=== PATIENT | female | born 1955 | race Caucasian/White ===

== ENCOUNTER 2019-07-30 10:11 | Outpatient (CLI) | payer BC, SELFPAY ==
[2019-07-30 10:27] LABS: Basophils # 0.1 10^3/uL (0.0-0.1); Basophils % 0.4 %; Eosinophils # 0.4 10^3/uL (0.0-0.8); Eosinophils % 3.6 %; Hematocrit 47.7 % (37.0-47.0); Hemoglobin 15.7 g/dL (11.5-15.3); Lymphocytes % 8.3 %; Mean Corpuscular HGB Conc 32.9 g/dL (30.0-36.0); Mean Corpuscular Hemoglobin 30.2 pg (28.0-34.0); Mean Corpuscular Volume 91.7 fL (81-99); Mean Platelet Volume 9.4 fL (7.4-10.4); Monocytes % 8.3 %; Neutrophils # 9.8 10^3/uL (1.8-7.7); Neutrophils % 78.9 %; Nucleated Red Blood Cells % 0 %; Platelet Count 182 10^3/cmm (130-400); White Blood Count 12.4 10^3/uL (4.0-10.0)
[2019-07-30 10:46] LABS: Alanine Aminotransferase 67 U/L (0-33); Albumin Level 5.2 g/dL (3.5-5.2); Alkaline Phosphatase 93 IU/L (35-105); Anion Gap 19.3 (5-19); Aspartate Amino Transferase 35 U/L (0-32); Blood Urea Nitrogen 10 mg/dL (8-23); Calcium 10.2 mg/dL (8.5-10.5); Carbon Dioxide 28 mmol/L (22-29); Chloride 101 mmol/L (98-107); Globulin 2.9 g/dL (1.3-4.6); Glucose 133 mg/dL (65-115); Osmolality Calculated 296 mOsm/kg (285-295); Potassium 4.3 mmol/L (3.5-5.1); Sodium 144 mmol/L (136-145); Total Bilirubin 0.6 mg/dL (0.15-1.2); Total Protein 8.1 g/dL (6.6-8.7)
== END 2019-07-30 10:12 | disposition home or self-care (01) ==
LOC: LAB 10:14
PROVIDERS: PCP Physician Assistant; Visit Provider Internal Medicine Critical Care Medicine
DX: J44.9 Chronic obstructive pulmonary disease, unspecified (principal)
CPT/HCPCS: 36415; 80053; 85025

== ENCOUNTER 2019-08-07 11:17 | Outpatient (CLI) | payer MEDICARE, SELFPAY ==
--- NOTE | 2019-08-07 11:22 | CT_ITS ---
WS: [id number] LDCT LUNG CANCER SCREENING TECHNIQUE: Noncontrast CT of the chest with coronal and sagittal reformatted images. CLINICAL INFORMATION: HX OF TOBACCO USE COMPARISON: None. DLP: 58.53 mGy.cm DIvol: 1.[address] scans at [facility] use at least one of these dose optimization techniques: automat ed exposure control; mA and/or kV adjustment per patient size (includes targeted exams where dose is matched to clinical indication); or iterative reconstruction. FINDINGS: Noncalcified pulmonary nodule right lower lobe measuring 5 mm. Tiny noncalcified nodule left upper lo be laterally measuring 2 mm. Calcified granulomas in the right middle lobe and along the fissure. Calcified granuloma left upper l obe. Mild chronic emphysematous changes. No mediastinal or hilar lymphadenopathy. No axillary lymphad enopathy. Calcified hilar nodes. Moderate aortic calcification. Coronary calcification. Partially byron luated suggestion of Small nodules left greater than right adrenal glands likely adenomas. This can b e followed up with CT abdomen pelvis adrenal protocol. Splenic granulomas. Small esophageal hiatal hernia. Mild thoracic kyphosis. Schmorl's nodes in the mi d thoracic spine with chronic anterior wedging. CT/CT lung screening [id number] IMPRESSION: LUNG-RADS: 3-Probably Benign FOLLOW UP: 6 Month LDCT
== END 2019-08-07 11:18 | disposition home or self-care (01) ==
LOC: CT 11:19
PROVIDERS: PCP Physician Assistant; Visit Provider Family Medicine
DX: Z12.2 Encounter for screening for malignant neoplasm of respiratory organs (principal); Z87.891 Personal history of nicotine dependence; L92.8 Other granulomatous disorders of the skin and subcutaneous tissue; K44.9 Diaphragmatic hernia without obstruction or gangrene; M40.294 Other kyphosis, thoracic region; M51.44 Schmorl's nodes, thoracic region
CPT/HCPCS: G0297

== ENCOUNTER 2019-08-31 08:51 | Outpatient (CLI) | payer MEDICARE, SELFPAY ==
[2019-08-31 09:46] VITALS: O2SAT 93
--- NOTE | 2019-08-31 10:15 | USCV_ITS ---
Melinda Spear Age: 64 Gender: F : 1955 Exam Date: 08/31/2019 09:45 Ordering Phys: Jackson Cordova MD Technologist: Edu Jeronimo Exam Location: [facility] Indication: SOB BP: 160 / 80 HR: 90 Rhythm: Sinus Technical Quality: Fair MEASUREMENTS (Male / Female) Normal Values 2D ECHO LV Diastolic Diameter PLAX 3.4 cm 4.2 - 5.9 / 3.9 - 5.3 cm LV Systolic Diameter PLAX 1.8 cm IVS Diastolic Thickness 0.8 cm 0.6 - 1.0 / 0.6 - 0.9 cm IVS Systolic Thickness 1.3 cm LVPW Diastolic Thickness 1.0 cm 0.6 - 1.0 / 0.6 - 0.9 cm LVPW Systolic Thickness 0.9 cm LVOT Diameter 2.0 cm LV Ejection Fraction 2D Teich 78.0 % LV Ejection Fraction MOD 2C 75.3 % LV Ejection Fraction 2C AL 75.5 % LA Diameter 3.4 cm LA Width 2.9 cm LA Height 3.0 cm RA Width 2.8 cm RA Height 3.4 cm M-MODE LV Diastolic Diameter MM 5.4 cm 4.2 - 5.9 / 3.9 - 5.3 cm LV Systolic Diameter MM 3.0 cm LV Ejection Fraction MM Teich 76.0 % IVS Diastolic Thickness MM 1.1 cm 0.6 - 1.0 / 0.6 - 0.9 cm IVS Systolic Thickness MM 1.8 cm LVPW Diastolic Thickness MM 1.1 cm 0.6 - 1.0 / 0.6 - 0.9 cm LVPW Systolic Thickness MM 1.9 cm RV Diastolic Diameter MM 1.1 cm Aortic Annulus Diameter 3.3 cm LA Ao Ratio MM 1.0 MV E Point Septal Separation 0.6 cm DOPPLER AV Peak Velocity 130.0 cm/s LVOT Peak Velocity 99.0 cm/s AV Area Cont Eq vti 2.7 cm squared AV Area Cont Eq pk 2.4 cm squared MV Area PHT 5.0 cm squared Mitral E to A Ratio 1.1 MV E' Velocity 8.0 cm/s Mitral E to MV E' Ratio 8.4 Mitral E to LV E' Lateral Ratio 8.9 Mitral E to LV E' Septal Ratio 8.0 TR Peak Velocity 170.0 cm/s TR Peak Gradient 11.5 mmHg TV Peak E Velocity 85.0 cm/s Right Atrial Pressure 3.0 mmHg Pulmonary Artery Systolic Pressu 14.6 mmHg PV Peak Velocity 129.0 cm/s FINDINGS Left Ventricle Normal left ventricular cavity size. Normal left ventricular systolic function. No regional wall motion abnormalities. Left ventricular ejection fraction is estimated at 65 %. Grade I/IV diastolic dysfunction (abnormal relaxation filling pattern), normal to mildly elevated filling pressures. Right Ventricle The right ventricle is normal in size and function. Right Atrium The right atrium is normal in size. Left Atrium The left atrium is normal in size. Mitral Valve Structurally normal mitral valve without significant stenosis or prolapse. There is no mitral regurgitation. Aortic Valve Structurally normal aortic valve without significant sclerosis or stenosis. There is no aortic regurgitation. Tricuspid Valve Structurally normal tricuspid valve without significant stenosis or regurgitation. Pulmonary artery systolic pressure is normal. Pulmonic Valve Structurally normal pulmonic valve without significant stenosis. There is no pulmonic regurgitation. Pericardium Normal pericardium without effusion. Aorta Normal ascending aorta dimension. CONCLUSIONS 1-Normal left ventricular cavity size. Normal left ventricular systolic function. No regional wall motion abnormalities. Left ventricular ejection fraction is estimated at 65 %. Grade I/IV diastolic dysfunction (abnormal relaxation filling pattern), normal to mildly elevated filling pressures. 2-There is no pericardial effusion. 3-No significant valve abnormalities. 4-Pulmonary artery systolic pressure is within normal limits. 5-Right atrial pressure is around 5 mm of mercury. 6-There are no prior echocardiogram studies to compare. Robbin Watts MD (Electronically Signed) Final Date: 31 August 2019 17:11 S
--- NOTE | 2019-08-31 14:30 | PFTS_ITS ---
Date of Study:08/31/19 Date of Dictation: MECHANICS: Forced vital capacity (FVC) is normal. Forced expiratory volume in one second (FEV1) is reduced. FEV1/FVC is reduced. FLOW VOLUME LOOP: Reduced flow at all lung volumes with significant scooping. LUNG VOLUMES: Total lung capacity (TLC) is elevated. Residual volume (RV) is elevated. DIFFUSING CAPACITY FOR CARBON MONOXIDE: Severely reduced. INTERPRETATION: The pulmonary function tests are consistent with severe airflow obstruction. There is no significant bronchodilator response. Lung volumes are consistent with hyperinflation and air trapping. Gas exchange (DLCO) is severely diminished. MTDD
== END 2019-08-31 08:52 | disposition home or self-care (01) ==
LOC: RT 08:55
PROVIDERS: PCP Physician Assistant; Visit Provider Internal Medicine Critical Care Medicine
DX: R06.02 Shortness of breath (principal); J44.9 Chronic obstructive pulmonary disease, unspecified; I51.81 Takotsubo syndrome
CPT/HCPCS: 93306; 94060; 94726; 94729; J7611

== ENCOUNTER 2019-08-31 20:00 | Outpatient (CLI) | payer MEDICARE, SELFPAY | END 2019-08-31 20:01 | disposition home or self-care (01) | LOC: SLEEP 09-01 10:23 | PROVIDERS: PCP Physician Assistant; Visit Provider Internal Medicine Critical Care Medicine | DX: J44.9 Chronic obstructive pulmonary disease, unspecified (principal); R06.02 Shortness of breath; I51.81 Takotsubo syndrome | CPT/HCPCS: 93306; 94060; 94726; 94729; 94762; J7611 ==

== ENCOUNTER → 2019-10-02 10:26 | Outpatient (BNVA) | payer BC, SELFPAY | PROVIDERS: PCP Physician Assistant; Visit Provider Internal Medicine | DX: J44.9 Chronic obstructive pulmonary disease, unspecified (principal); Z20.828 Contact with and (suspected) exposure to other viral communicable diseases | CPT/HCPCS: 87635 ==

== ENCOUNTER 2019-12-23 09:26 | Outpatient (CLI) | payer BC, SELFPAY ==
--- NOTE | 2019-12-23 | XR_ITS ---
WS: [id number] Bone mineral density performed on a [place], today Clinical data: POST MENOPAUSE Findings: The first 4 lumbar vertebral bodies demonstrated the bone mineral density of 0.982 g/sq cm for a karen g adult T score of -1.8. Measurement of the left hip reveals a bone mineral density of 0.760 g/cm2 with a young adult T score of -2.0. Measurement of the right hip reveals the bone mineral density of 0.788 g/cm2 for young adult T score of -1.7. XR/XR DEXA axial skeleton* [id number] Impression: 1. Osteopenia of the lumbar spine. 2. Osteopenia of both hips.
== END 2019-12-23 09:27 | disposition home or self-care (01) ==
LOC: RADWPI 09:34
PROVIDERS: PCP Physician Assistant; Visit Provider Physician Assistant
DX: Z78.0 Asymptomatic menopausal state (principal); M85.88 Other specified disorders of bone density and structure, other site
CPT/HCPCS: 77080

== ENCOUNTER 2020-03-18 10:11 | Outpatient (CLI) | payer MEDICARE, SELFPAY ==
--- NOTE | 2020-03-18 10:14 | MM_ITS ---
WS: [id number] BILATERAL SCREENING DIGITAL MAMMOGRAM WITH CAD HISTORY: SCREENING COMPARISON: 06/22/2008 Bilateral CC and MLO views submitted. Computer aided detection analyzed. Breast composition: The breasts are heterogeneously dense, which may obscure small masses. No suspici ous masses, microcalcifications or architectural distortion. Benign scattered calcifications in each breast. MM/[place] [id number] IMPRESSION: BI-RADS: 2-Benign FOLLOW UP: 1 Year Follow-up
== END 2020-03-18 10:12 | disposition home or self-care (01) ==
LOC: RADSHAW 10:13
PROVIDERS: PCP Physician Assistant; Visit Provider Physician Assistant
DX: Z12.31 Encounter for screening mammogram for malignant neoplasm of breast (principal)
CPT/HCPCS: 77067

== ENCOUNTER 2020-05-09 07:44 | Outpatient (CLI) | payer MEDICARE, SELFPAY ==
--- NOTE | 2020-05-09 07:48 | CT_ITS ---
WS: [id number] LDCT LUNG CANCER SCREENING HISTORY: HX OF TOBACCO USE TECHNIQUE: Axial imaging performed from the apices to 1 cm below the costophrenic angles. Coronal and sagittal reformats are submitted with axial MIP series. All CT scans at [facility] use at least one of these dose optimization techniques: automated exposure control; mA and/or kV adjustment per patient size (includes targeted exams where dose is matched to clinical indication); or iterativ e reconstruction. DLP: 58.94 mGy.cm DIvol: 1.58 mGy COMPARISON: 08/07/2019 Diagnostic quality: Satisfactory Lung Nodules: Stable 5 mm nodule RIGHT lower lobe, image 196 of series 3. 2 mm nodule periphery LEFT upper lobe, image 60 of series 3. There is an additional stable nodule in the RIGHT lower lobe which could be a scar or granuloma on image 220 of series 3. No new nodules. Lungs: Moderate pulmonary hyperexpansion. Changes of mild early bronchiectasis at the lung bases. Gra nulomas scattered throughout the lungs. Heart: Normal size heart. No pericardial effusion. Other findings: Scattered coronary artery calcifications. Mild atherosclerosis aorta. Small hiatal he rnia. Suspicious but indeterminate for a cyst in the upper pole of the RIGHT kidney. Increase in thor acic kyphosis with multiple wedge-shaped compression fractures. CT/CT lung screening [id number] IMPRESSION: LUNG-RADS: 2S-Benign Appearance or Behavior with Significant Findings FOLLOW UP: 12 Month: Continue annual screening with LDCT OTHER FINDINGS (S MODIFIER): Possible cyst or nodule upper pole RIGHT kidney. L obulated contour of the upper pole. Recommend follow-up ultrasound evaluation o f the kidneys to evaluate for possible mass or cyst.
== END 2020-05-09 07:45 | disposition home or self-care (01) ==
LOC: CT 07:44
PROVIDERS: PCP Physician Assistant; Visit Provider Internal Medicine Critical Care Medicine
DX: Z12.2 Encounter for screening for malignant neoplasm of respiratory organs (principal); Z87.891 Personal history of nicotine dependence; I70.0 Atherosclerosis of aorta; I25.10 Atherosclerotic heart disease of native coronary artery without angina pectoris; K44.9 Diaphragmatic hernia without obstruction or gangrene; M40.294 Other kyphosis, thoracic region
CPT/HCPCS: 71271

== ENCOUNTER → 2021-07-03 08:34 | Outpatient (BNVA) | payer MEDICARE, MEDICAID, SELFPAY | PROVIDERS: PCP Physician Assistant; Visit Provider Internal Medicine Critical Care Medicine | DX: J44.9 Chronic obstructive pulmonary disease, unspecified (principal); J96.11 Chronic respiratory failure with hypoxia; R91.1 Solitary pulmonary nodule; I10 Essential (primary) hypertension; E78.5 Hyperlipidemia, unspecified; Z87.891 Personal history of nicotine dependence | CPT/HCPCS: 99214 ==

== ENCOUNTER 2021-07-20 07:05 | Outpatient (CLI) | payer MEDICARE, MEDICAID, SELFPAY ==
--- NOTE | 2021-07-20 12:21 | PFTS_ITS ---
Date of Study:07/20/21 Date of Dictation: 07/21/2021 MECHANICS: Postbronchodilator forced vital capacity (FVC) is normal. Postbronchodilator forced expiratory volume in one second (FEV1) is severely reduced 37 %. FEV1/FVC is reduced. There is no significant response to bronchodilators. FLOW VOLUME LOOP: Severe sloping of expiratory limb suggestive of severe airflow obstruction . LUNG VOLUMES: Total lung capacity (TLC) is increased. Residual volume (RV) is increased suggestive of severe air trapping. DIFFUSING CAPACITY FOR CARBON MONOXIDE: Severely reduced . INTERPRETATION: The spirometry consistent with severe airflow obstruction. No significant response to bronchodilators. Flow volume loop consistent with severe airflow obstruction. Lung volumes suggestive of severe air trapping and hyperinflation. There is severe gas transfer defect. Constellation of findings consistent with severe obstructive lung disease like emphysema. Clinical correlation recommended. MTDD
== END 2021-07-20 07:06 | disposition home or self-care (01) ==
LOC: RT 07:05
PROVIDERS: PCP Physician Assistant; Visit Provider Internal Medicine Critical Care Medicine
DX: J44.9 Chronic obstructive pulmonary disease, unspecified (principal); F17.210 Nicotine dependence, cigarettes, uncomplicated
CPT/HCPCS: 94060; 94618; 94726; 94729; J7611

== ENCOUNTER 2021-08-25 11:02 | Outpatient (CLI) | payer MEDICARE, MEDICAID, SELFPAY ==
--- NOTE | 2021-08-25 11:10 | MM_ITS ---
WS: [id number] Bilateral screening 3D tomosynthesis digital mammogram, 08/25/2021 Clinical Data: SCREENING Comparison: 03/18/2020, 06/22/2008, 10/21/2003. Findings: The breast parenchymal pattern shows fat replacement. No spiculated masses or clustered calcification s are seen. There are no secondary signs of carcinoma. There are mole markers on both breasts. There are small benign calcifications in both breasts. MM/[place] [id number] Impression: 1. Negative bilateral mammogram unchanged. 2. Recommend annual screening mammograms. BIRADS: 1-Negative FOLLOW UP: 1 Year Follow-up The CAD checkering machine operator was used.
== END 2021-08-25 11:03 | disposition home or self-care (01) ==
LOC: RAD 11:02
PROVIDERS: PCP Physician Assistant; Visit Provider Physician Assistant
DX: Z12.31 Encounter for screening mammogram for malignant neoplasm of breast (principal)
CPT/HCPCS: 77063; 77067

== ENCOUNTER 2021-09-05 10:00 | Outpatient (CLI) | payer MEDICARE, MEDICAID, SELFPAY ==
--- NOTE | 2021-09-05 10:15 | US_ITS ---
WS: [id number] RENAL ULTRASOUND HISTORY: Possible cyst or nodule upper pole RIGHT kidney COMPARISON: 05/09/2020 TECHNIQUE: 2-D and color Doppler imaging of the kidney submitted. Right kidney: 11.0 cm x 3.4 cm x 5.3 cm. Normal size kidney. Well-circumscribed cyst from the upper pole of the RIGHT kidney corresponds to th e abnormality seen on the recent lung screening CT. This cyst measures 2.3 x 2.3 x 2.4 cm. There are few other scattered cysts. No solid mass or obstruction. Left kidney: 12.2 cm x 4.9 cm x 4.3 cm. Normal echogenicity with no hydronephrosis or mass. Aorta: Normal. Urinary Bladder: Normal distention. US/US renal BI* [id number] IMPRESSION: 1. Multiple RIGHT renal cysts. Mass identified involving the superior RIGHT ki dney on a prior lung screen CT corresponds to a simple cyst. 2. No solid renal mass.
== END 2021-09-05 10:01 | disposition home or self-care (01) ==
PROVIDERS: PCP Physician Assistant; Visit Provider Internal Medicine Critical Care Medicine
DX: R93.429 Abnormal radiologic findings on diagnostic imaging of unspecified kidney (principal); Q61.02 Congenital multiple renal cysts
CPT/HCPCS: 76770

== ENCOUNTER 2021-09-18 12:04 | Outpatient (CLI) | payer MEDICARE, MEDICAID, SELFPAY ==
--- NOTE | 2021-09-18 | CT_ITS ---
Guided Bronchoscopy Planning CT images; total exam DLP: 609.97 mGy-cm MTDD
== END 2021-09-18 12:05 | disposition home or self-care (01) ==
LOC: RAD 12:05
PROVIDERS: PCP Physician Assistant; Visit Provider Internal Medicine Critical Care Medicine
DX: J44.9 Chronic obstructive pulmonary disease, unspecified (principal); R91.1 Solitary pulmonary nodule
CPT/HCPCS: 71250

== ENCOUNTER 2021-11-08 08:19 | Outpatient (CLI) | payer MEDICARE, MEDICAID, SELFPAY | END 2021-11-08 08:20 | disposition home or self-care (01) | LOC: RAD 11:05 | PROVIDERS: PCP Physician Assistant; Visit Provider Internal Medicine Critical Care Medicine | DX: J44.9 Chronic obstructive pulmonary disease, unspecified (principal); J96.11 Chronic respiratory failure with hypoxia; R91.1 Solitary pulmonary nodule; Z99.81 Dependence on supplemental oxygen | CPT/HCPCS: 99214 ==

== ENCOUNTER 2021-11-14 08:50 | Inpatient (IN) | payer MEDICARE, MEDICAID, SELFPAY ==
[2021-11-10 12:27] VITALS: BMI 23.1
[2021-11-14] VITALS (47 sets, daily range): BP systolic 129–175; BP diastolic 72–86; PULSE 66–102; RESP 14–30; TEMP 36.2–36.9; O2SAT 90–98
[2021-11-14] MEDS: sodium chloride 0.9% 1,000 ML 30 ML IV (06:44)
--- NOTE | 2021-11-14 06:47 | ANES.PREANE2 ---
Pre-Anesthetic Assessment Height/Weight: Height 1.65 m Weight 63.049 kg Temp Pulse Resp BP Pulse Ox O2 Del Method 97.1 F L 102 H 18 175/86 98 11/14/21 06:28 11/14/21 06:28 11/14/21 06:28 11/14/21 06:28 11/14/21 06:28 11/14/21 06:28 Preop Diagnosis: Severe COPD Operation Date: 11/14/21 07:00 Proposed Procedures p Endobronchial Valve Placement [id number],J43.9(Not Applicable) - Biplab MD Art Familial anesthetic complications: none Last intake: Intake Last Liquid Date 11/13/21 Last Liquid Time 23:00 Last Solid Date 11/13/21 Last Solid Time 19:00 Social Alcohol (2 beer per day.) and No tobacco Airway Submandibular: within normal limits Cervical ROM: within normal limits Mallampati: Class II Dentition: false Pulmonary Chronic Obstructive Pulmonary Disease and Shortness of Breath 3L O2 at night and prn during day. CV/HEM Hypertension 09/06 Echo with normal EF no major abnormalities None reported Hepatic None reported GI None reported Metabolic Hyperlipidemia and Thyroid Disease [facility] [place] None reported Neuropsych None reported Anesthetic Plan ASA status: 3 Anesthesia: General Medications/Allergies Home Medications Medication Instructions Recorded Confirmed Last Taken Type albuterol sulfate 2.5 mg/3 mL 2.5 mg inhalation Q4H PRN 07/30/19 11/10/21 11/12/21 History (0.083 %) solution for nebulization Shortness Of Breath cholecalciferol (vitamin D3) 25 25 mcg PO DAILY 07/30/19 11/14/21 11/13/21 History mcg (1,000 unit) capsule fexofenadine 180 mg tablet 180 mg PO DAILY 07/30/19 11/14/21 11/13/21 History (Allergy Relief (fexofenadine)) ipratropium 0.5 mg-albuterol 3 mg 3 ml inhalation Q6H PRN Shortness 07/30/19 11/10/21 11/12/21 History (2.5 mg base)/3 mL nebulization Of Breath soln losartan 50 mg tablet (Cozaar) 50 mg PO DAILY 07/30/19 11/10/21 11/13/21 History mecobalamin (vitamin B12) 1,000 1,000 mcg PO DAILY 07/30/19 11/10/21 11/13/21 History mcg chewable tablet pravastatin 10 mg tablet 10 mg PO DAILY 07/30/19 11/10/21 11/13/21 History amlodipine 5 mg tablet (Norvasc) 5 mg PO DAILY 09/10/19 11/14/21 11/13/21 History chlorthalidone 25 mg tablet 25 mg PO DAILY 08/29/20 11/14/21 11/13/21 History mometasone 100 mcg/actuation HFA See Rx Instructions .Route 05/31/21 11/10/21 11/13/21 Rx aerosol inhaler (Asmanex HFA) .COMPLEX #26 grams fluticasone propionate 50 2 spray intranasal DAILY 07/03/21 11/14/21 11/13/21 History mcg/actuation nasal spray,suspension (Flonase Allergy Relief) tiotropium 2.5 mcg-olodaterol 2.5 2 puff inhalation DAILY 90 days 08/08/21 11/10/21 11/13/21 Rx mcg/actuation mist for inhalation #12 grams (Stiolto Respimat) levofloxacin 750 mg tablet 750 mg PO DAILY #5 tabs 11/10/21 11/14/21 11/13/21 Rx prednisone 20 mg tablet 40 mg PO DAILY #10 tabs 11/10/21 11/14/21 11/13/21 Rx albuterol sulfate 90 mcg/actuation 2 puff inhalation Q4H PRN 11/14/21 11/14/21 11/14/21 History aerosol inhaler Shortness Of Breath Allergies Allergy/AdvReac Type Severity Reaction Status Date / Time doxycycline AdvReac Intermediate ADR-Vomitin Verified 11/10/21 12:32 g Current Medications Generic Name Dose Route Start Last Admin Trade Name Freq PRN Reason Stop Dose Admin Sodium Chloride 1,000 mls @ 30 mls/hr 11/14/21 06:15 11/14/21 06:44 Sodium Chloride 0.9% IV 11/15/21 06:14 30 mls/hr .Q24H LARY Administration PFSH Anesthesia Medical History B12 deficiency COPD (chronic obstructive pulmonary disease) HTN (hypertension) Hyperlipidemia Surgical History H/O tubal ligation Family History Father Cancer Social History Smoking and tobacco status: former smoker Quit status (tobacco): has quit using tobacco Year quit tobacco: 2006 - 2PPD x 30 Years Alcohol intake: current Alcohol intake frequency: holidays/special occasions only Alcohol type: beer Lives independently: Yes Household members: spouse Marital status: Current occupational status: retired History of recent travel: No Current gender identity: Female Data Anesthesia Cardiac Studies: Echocardiogram Ultrasound 08/31/19
--- NOTE | 2021-11-14 06:50 | W.PM.OPSUD ---
Surgery/Procedure H&P Update DATE OF PROCEDURE: November 14, 2021 DATE H&P PERFORMED: 11/08/21 PREOP DIAGNOSIS: Severe COPD PRIMARY INDICATION FOR PROCEDURE: Severe COPD This is a 66-year-old lady with severe airflow obstruction, hyperinflation and air trapping and severely reduced DLCO coming in for bronchoscopic lung volume reduction procedure of the left upper lobe. PLANNED PROCEDURE: Operation Date: 11/14/21 07:00 Proposed Procedures p Endobronchial Valve Placement [id number](Not Applicable) - Jackson Cordova MD
[2021-11-14] MEDS: lidocaine 1% INJ 20 mL MDV (mL) XX (07:25)
--- NOTE | 2021-11-14 08:34 | PM.OP ---
Operative Report Date of procedure: November 14, 2021 Pre-op diagnosis: Preop Diagnosis Severe COPD Post-op diagnosis: Same Brief History: This is a 66-year-old lady with severe COPD coming in for bronchoscopic lung volume reduction of left upper lobe. Procedure: Name of the procedure: Bronchoscopy inspection of the airway, endobronchial spiration valve placement in the left upper lobe for bronchoscopic lung volume reduction. Indication: Severe emphysema, severe airflow obstruction with air trapping, chronic hypoxic respiratory failure Anesthesia: General Description of the procedure: The patient was positioned optimally. He underwent endotracheal tube placement and general anesthesia. The bronchoscope was passed through the endotracheal tube till lower trachea was visible. The lower trachea, rakesh, right and left mainstem bronchi anesthetized with 1% lidocaine. In a systematic way, bilateral airways were then examined. The bronchoscope was introduced into the left mainstem bronchus. The left upper lobe, lingula and lower lobe bronchi were normal. There was evidence of mild bronchiectasis, and minimal mucosal erythema. The bronchoscope was introduced to the right mainstem bronchus. The right upper lobe, middle lobe and lower lobe bronchi were examined. No abnormalities were identified. There was mucus throughout the airways. Bronchoalveolar lavage was performed from the medial segment of the right middle lobe. A total of 30 cc of fluid was instilled, fluid return was 15 mm. The fluid was cloudy. Using the patented balloon, measurements were performed for the left upper lobe segmental and subsegmental bronchi. The apicoposterior segmental bronchus divided into 2 subsegmental branches. There were measured separately. The anterior segmental had 2 separate bronchus. They are also measured separately for valve sizing. The lingular bronchus had a longer length and was measured for 1 valve placement. A total of 5 valves were sequentially placed. A 9 mm valve was deployed in the upper subsegmental branch of apicoposterior segment. The lower subsegment needed a 7 mm valve. 2 7 mm valves are deployed in the anterior segments. An 9 mm valve was deployed in the lingular segment. All valves were in good position. Complications: There is no immediate complications. The patient was brought to ICU after the procedure. Chest x-ray: Pending.
--- NOTE | 2021-11-14 08:41 | XR_ITS ---
WS: [id number] Exam: XR chest 1V portable [id number] Date/Time of Exam: 11/14/2021 8:54 AM Reason For Exam: Post endobronchial valve placement Comparison 07/01/2018. The lungs are clear and fully expanded. Cardiomediastinal silhouette is unremarkable. No pleural effu teri. Postoperative changes seen at the left pulmonary hilum. Bony structures are intact. Monitoring leads superimpose the chest. XR/XR chest 1V portable [id number] IMPRESSION: 1. No acute cardiopulmonary finding.
--- NOTE | 2021-11-14 08:53 | PM.HP ---
Providers/Chief Complaint Admitting Physician: Jackson Cordova MD Primary Care Provider: Jennifer Nevarez Chief Complaint: COPDFU History of Present Illness Melinda Spear is a 66 year old female who was admitted to the intensive care unit after undergoing bronchoscopic lung volume reduction by aspiration valve placement in the left upper lobe. The patient has gold class D COPD. Her latest pulmonary function test in July 2021 revealed an FEV1 FVC ratio of 35% with FEV1 1.86 L which is 37% of predicted and a forced vital capacity of 2.45 L which is 83% of predicted.? Her total lung capacity is 131%, residual volume of 196% and DLCO of 33%. Her CT scan for evaluation of bronchoscopic lung volume reduction showed her to be candidate for left upper lobe valve deployment.? There is fascial integrity on the left side.? She has 61% emphysema in the left upper lobe with a heterogeneity score of 18.? The volume of the left upper lobe is more than 1500 cc. The patient had a 5 mm right lower lobe lung nodule that had been stable for more than 2 years. Her nocturnal oximetry was consistent with nocturnal hypoventilation with desaturation. The patient has currently been using 2 to 3 L of oxygen. On her latest 6-minute walk test the patient walked 500 feet.? Her baseline PCO2 level is around 50. Her other medical history includes hypertension, hyperlipidemia, allergic rhinosinusitis. Her echocardiogram revealed normal ejection fraction with grade 1 diastolic dysfunction.? No valvular abnormalities. The patient underwent 5 endobronchial valve placement to achieve occlusion of the left upper lobe and lingular airways. Postprocedure, the patient had been doing well in the ICU. No complications so far. The patient is on Asmanex and Stiolto at home. In the hospital she is going to be receiving DuoNeb and Pulmicort. She was started on prednisone and Levaquin yesterday and she will receive Solu-Medrol and Levaquin in the ICU. Review of Systems Narrative: General: No fevers chills night sweats or fatigue Skin: No rash HEENT: No nasal congestion, rhinitis, sinusitis, sneezing Neck: There is no neck swelling, mass or swollen glands. Respiratory: She has cough, sputum production, wheezing and exertional shortness of breath Cardiovascular: No chest pain, shortness of breath, orthopnea, or paroxysmal nocturnal dyspnea Gastrointestinal: No abdominal pain, nausea, vomiting Musculoskeletal: No joint pain or swelling, muscle weakness Neurological: Patient is awake alert and oriented x3, no paralysis, gross motor function is normal. Psychiatric: No anxiety or depression. Medications/Allergies Home Medications Medication Instructions Recorded Confirmed Last Taken Type albuterol sulfate 2.5 mg/3 mL 2.5 mg inhalation Q4H PRN 07/30/19 11/10/21 11/12/21 History (0.083 %) solution for nebulization Shortness Of Breath cholecalciferol (vitamin D3) 25 25 mcg PO DAILY 07/30/19 11/14/21 11/13/21 History mcg (1,000 unit) capsule fexofenadine 180 mg tablet 180 mg PO DAILY 07/30/19 11/14/21 11/13/21 History (Allergy Relief (fexofenadine)) ipratropium 0.5 mg-albuterol 3 mg 3 ml inhalation Q6H PRN Shortness 07/30/19 11/10/21 11/12/21 History (2.5 mg base)/3 mL nebulization Of Breath soln losartan 50 mg tablet (Cozaar) 50 mg PO DAILY 07/30/19 11/10/21 11/13/21 History mecobalamin (vitamin B12) 1,000 1,000 mcg PO DAILY 07/30/19 11/10/21 11/13/21 History mcg chewable tablet pravastatin 10 mg tablet 10 mg PO DAILY 07/30/19 11/10/21 11/13/21 History amlodipine 5 mg tablet (Norvasc) 5 mg PO DAILY 09/10/19 11/14/21 11/13/21 History chlorthalidone 25 mg tablet 25 mg PO DAILY 08/29/20 11/14/21 11/13/21 History mometasone 100 mcg/actuation HFA See Rx Instructions .Route 05/31/21 11/10/21 11/13/21 Rx aerosol inhaler (Asmanex HFA) .COMPLEX #26 grams fluticasone propionate 50 2 spray intranasal DAILY 07/03/21 11/14/21 11/13/21 History mcg/actuation nasal spray,suspension (Flonase Allergy Relief) tiotropium 2.5 mcg-olodaterol 2.5 2 puff inhalation DAILY 90 days 08/08/21 11/10/2122 Rx mcg/actuation mist for inhalation #12 grams (Stiolto Respimat) levofloxacin 750 mg tablet 750 mg PO DAILY #5 tabs 11/10/21 11/14/21 11/13/21 Rx prednisone 20 mg tablet 40 mg PO DAILY #10 tabs 11/10/21 11/14/21 11/13/21 Rx albuterol sulfate 90 mcg/actuation 2 puff inhalation Q4H PRN 11/14/21 11/14/21 11/14/21 History aerosol inhaler Shortness Of Breath Allergies Allergy/AdvReac Type Severity Reaction Status Date / Time doxycycline AdvReac Intermediate ADR-Vomitin Verified 11/10/21 12:32 g PFSH Acute PFSH: Medical History (Updated 11/14/21 @ 09:06 by Jackson Cordova MD) B12 deficiency COPD (chronic obstructive pulmonary disease) HTN (hypertension) Hyperlipidemia Surgical History H/O tubal ligation Family History Father Cancer Social History Smoking and tobacco status: former smoker Quit status (tobacco): has quit using tobacco Year quit tobacco: 2006 - 2PPD x 30 Years Alcohol intake: current Alcohol intake frequency: holidays/special occasions only Alcohol type: beer Lives independently: Yes Household members: spouse Marital status: Current occupational status: retired History of recent travel: No Current gender identity: Female Vitals/I&O/Wt Last Vital Signs Temp 97.1 F L 11/14/21 06:28 Pulse 102 H 11/14/21 06:28 Resp 18 11/14/21 06:28 BP 175/86 11/14/21 06:28 Pulse Ox 98 11/14/21 06:28 O2 Del Method 11/14/21 06:28 11/13/21 11/14/21 11/14/21 22:59 06:59 14:59 Intake Total 700 / 700 Balance 700 / 700 Physical Exam Narrative: General: Patient is awake alert and oriented, in no acute distress. Resting comfortably in ICU Neck: No JVD Respiratory: Auscultation: Reduced breath sound bilaterally, no crackles wheezing or rhonchi Cardiovascular: Regular rate and rhythm, S1-S2 present, distant heart sound, no murmur, no peripheral edema Abdomen: Soft, nontender, nondistended, positive bowel sound Musculoskeletal: No obvious joint deformity Skin: No rash Lymphatic: The axillary and inguinal lymph node groups are not examined Neuro: Mental status is normal, no gross cranial nerve deficit, gross normal motor function A&P Assessment and plan (1) COPD (chronic obstructive pulmonary disease): This is a 66-year-old lady with gold class D COPD. Her pulmonary function test is consistent with severe airflow obstruction with hyperinflation, air trapping and severely reduced DLCO. The patient was found to be a candidate for bronchoscopic lung volume reduction and underwent left upper lobe endobronchial valve placement on . A total of 5 valves were placed. She had 2 9 mm valve placed. One was in the lingular segment of the other 1 was on the superior subsegment of apicoposterior segmental bronchus. The other 3 valves were 7 mm. The procedure was completed without any complications. The valves are in good position. As there is approximately 20% risk of developing pneumothorax, the patient will be closely monitored and managed in the medical ICU. Unwilling to obtain a chest x-ray now. The patient was initiated empirically on prednisone and Levaquin yesterday. We will continue with Solu-Medrol and Levaquin for the time being. The patient will receive DuoNeb every 6 hours and Pulmicort every 12 hours. (2) Chronic respiratory failure with hypoxia: The patient has chronic hypoxic respiratory failure. She typically uses 2 to 3 L of oxygen. We will titrate her oxygen with a goal of 88% and above oxygen saturation. (3) Hypertension: The patient was started on amlodipine and losartan those are her home medications. (4) Hyperlipidemia: She was on 10 mg of pravastatin, this was switched to 20 mg of atorvastatin in the hospital. Attestations Medical Necessity Statement*: The patient is expected to be in the hospital for 3 days for close management due to the risk of developing life-threatening pneumothorax. Coding Level of Care Code Acute Educational Administrator for [facility] Fwd Diagnoses COPD (chronic obstructive pulmonary disease) J44.9 Chronic respiratory failure with hypoxia J96.11 Hypertension I10 Hyperlipidemia E78.5
[2021-11-14] MEDS: ipratropium-albuterol 3 mL Neb INHALATION ×3 (09:03→19:50)
[2021-11-14] MEDS: budesonide 0.5 mg/2 mL Neb INHALATION ×2 (09:04→19:50)
[2021-11-14 09:50] LABS: Basophils # 0.1 10^3/uL (0.0-0.1); Basophils % 0.4 %; Eosinophils # 0.1 10^3/uL (0.0-0.8); Eosinophils % 0.5 %; Hematocrit 42.9 % (37.0-47.0); Hemoglobin 14.1 g/dL (11.5-15.3); Lymphocytes % 6.9 %; Mean Corpuscular HGB Conc 32.9 g/dL (30.0-36.0); Mean Corpuscular Hemoglobin 29.9 pg (28.0-34.0); Mean Corpuscular Volume 90.9 fl (81-99); Mean Platelet Volume 9.2 fL (7.4-10.4); Monocytes # 0.7 10^3/uL (0.2-0.9); Monocytes % 4.7 %; Neutrophils # 11.97 10^3/uL (1.8-7.7); Neutrophils % 86.7 %; Nucleated Red Blood Cells % 0 %; Platelet Count 269 10^3/cmm (130-400); Red Blood Count 4.72 10^6/uL (4.1-5.3); Red Cell Distribution Width 13.1 % (12.1-15.1); White Blood Count 13.8 10^3/uL (4.0-10.0)
[2021-11-14 10:07] LABS: Anion Gap 15.6 (5-19); Blood Urea Nitrogen 16 mg/dL (8-23); Carbon Dioxide 27 mmol/L (22-29); Chloride 97 mmol/L (98-107); Glomerular Filtration Rate 62.5 mL/min (90-130); Glucose 186 mg/dL (65-115); Osmolality Calculated 288 mOsm/kg (285-295); Potassium 3.6 mmol/L (3.5-5.1); Sodium 136 mmol/L (136-145)
[2021-11-14] MEDS: levoFLOXacin 750 mg Tablet PO (10:58)
[2021-11-14] MEDS: famotidine 20 mg Tablet PO ×2 (10:59→17:52)
[2021-11-14] MEDS: losartan 50 mg Tablet PO (10:59)
[2021-11-14] MEDS: amlodipine 5 mg Tablet PO (10:59)
[2021-11-14] MEDS: enoxaparin 40 mg/0.4 mL Syringe SUBCUT (11:00)
--- NOTE | 2021-11-14 14:46 | ANE.PACU2 ---
Inpatient post-anesthesia follow up: Airway intact: Yes Vital signs: Temperature 97.1 F Pulse Rate 83 Respiratory Rate 30 Blood Pressure 145/83 Pulse Oximetry 96 Oxygen Delivery Me thod Nasal Cannula Oxygen Flow Rate 3 Fraction of Inspir ed Oxygen Hydration adequate: Yes Nausea and vomiting: No Pain level: 1 Mental status: Baseline
--- NOTE | 2021-11-14 15:04 | PC.NURSE ---
Admitted to ICU from GI ab at 0820 on 4L nasal canula. Patient is awake and appropriate and has no complaints at this time. All belongings in closet in room.
[2021-11-14] MEDS: atorvastatin 40 mg Tablet 20 MG PO (20:16)
[2021-11-15] VITALS (36 sets, daily range): BP systolic 110–166; BP diastolic 60–90; PULSE 68–142; RESP 13–28; TEMP 36.3–36.7; O2SAT 91–96
[2021-11-15] MEDS: ipratropium-albuterol 3 mL Neb INHALATION ×4 (01:59→20:27)
[2021-11-15] MEDS: levoFLOXacin 750 mg Tablet PO (05:08)
--- NOTE | 2021-11-15 07:00 | XR_ITS ---
WS: [id number] Exam: XR chest 1V portable [id number] Date/Time of Exam: 11/15/2021 4:11 AM Reason For Exam: Status post bronchoscopy Comparison 11/14/2021. The lungs are fully expanded and clear. Normal cardiomediastinal silhouette. No pleural effusions. Johnie ny structures are intact. Again noted is a previous instrumentation at the left hilar region. XR/XR chest 1V portable [id number] IMPRESSION: 1. No acute cardiopulmonary finding. No change.
[2021-11-15] MEDS: amlodipine 5 mg Tablet PO (08:23)
[2021-11-15] MEDS: famotidine 20 mg Tablet PO ×2 (08:23→18:14)
[2021-11-15] MEDS: enoxaparin 40 mg/0.4 mL Syringe SUBCUT (08:24)
[2021-11-15] MEDS: losartan 50 mg Tablet PO (08:24)
[2021-11-15] MEDS: budesonide 0.5 mg/2 mL Neb INHALATION ×2 (08:45→20:27)
--- NOTE | 2021-11-15 14:27 | PC.CHAP ---
Pastoral Care Encounter/Spiritual Assessment Type of Contact [] Declined meter tester primary visit [] Patient/Family/Request visit [] Outpatient visit [] Follow-up visit [] Physician referral [] Code/Alert [] Routine visit [] Staff referral [] Actively dying [] Patient sleeping [] Family support [] [] Out of room [] Palliative care [] [] Receiving care in room [] Pre-surgical visit [] Trauma [] Long length of stay [x] ICU visit [] Other: Relational/Emotional Strength [] Patient feels connected with others/family/visitors/staff [] Distress [] Loneliness/isolation [] Abandonment Spirituality of Patient [] Person of Suzie [] Attends Jain of their Suzie [] Believes in Prayer [] Reads Bible or Rastafarian materials [] There are Spiritual issues to be addressed Yeast Washer Interventions [x] Prayer [] Active listening [] Non-anxious presence [] Spiritual/emotional support [] Crisis/trauma care [] Spiritual counseling [] Bereavement support [] Provided bereavement packet [] Provided Bible/devotional materials [] Provided toy/stuffed animal, coloring book to patient or family member [] Provided Communion [] Anointing/[place] [] Salvation [x]xCompleted spiritual assessment [] Other: Impact on Illness or Injury [] Angry [] Fearful [] Anxious [] Often cries [] Exhaustion [] Unable to work [] Unable to attend sikhism [] Unable to walk/stand [] Unable to read [] Unable to drive [] Unable to eat/drink [] Unable to sleep [] Unable to be with family [] Patient intubated [] Other: Summary Time spent with patient
--- NOTE | 2021-11-15 15:58 | CTR_ITS ---
PROCEDURE INFORMATION: Exam: CT Chest Without Contrast; Diagnostic Exam date and time: 11/15/2021 4:52 PM Age: 66 years old Clinical indication: Abnormal findings; Other: Status post bronchoscopic lung volume reduction; Additional info: Status post bronchoscopic lung volume reduction. , Assessment of efficacy of the endobronchial valves. TECHNIQUE: Imaging protocol: Diagnostic computed tomography of the chest without contrast. Radiation optimization: All CT scans at this facility use at least one of these dose optimization techniques: automated exposure control; mA and/or kV adjustment per patient size (includes targeted exams where dose is matched to clinical indication); or iterative reconstruction. COMPARISON: CT chest SELECT [id number] 09/18/2021 12:39 PM RADIATION DOSE METRICS: Total DLP (mGy-cm): 292.53 FINDINGS: Tubes, catheters and devices: There are new devices in multiple left upper lobe bronchi. Please see the note of recent procedure. Lungs: There are changes of centrilobular emphysema throughout both lungs. There is some mild atelectatic change along the major fissure left upper lobe. There is some mild subsegmental atelectasis in the medial aspect of the left upper lobe increased from 09/18/2021. Pleural spaces: Unremarkable. No pneumothorax. No pleural effusion. Heart: There is moderate atherosclerotic calcification of the coronary arteries. Mediastinal space: There is no evidence of mediastinal fluid, masses, or gas. Lymph nodes: There are calcified hilar and mediastinal lymph nodes in keeping with old granulomatous disease. Vasculature: There is no thoracic aortic aneurysm. There is some mild atherosclerotic calcification of the aortic arch and proximal descending thoracic aorta. Bones/joints: Unremarkable. No acute fracture. Soft tissues: Unremarkable. CT/CT chest con [id number] IMPRESSION: 1. Pulmonary emphysema 2. Old granulomatous disease 3. New instrumentation in multiple left upper lobe bronchi 4. No pneumothorax.
--- NOTE | 2021-11-15 15:58 | PM.PN ---
Subjective Subjective: Patient did well. No overnight events. Hemodynamically stable. Oxygen requirement has remained the same. Chest x-ray this morning revealed mild atelectasis in the left upper lobe. Progressive atelectasis which is expected after endobronchial valve deployment has not happened yet. No pneumothorax. No microorganism on gram stain of the right middle lobe BAL. Medications: Reviewed: Yes Vitals/I&O/Wt Last Vital Signs Temp 97.9 F 11/15/21 07:30 Pulse 96 11/15/21 14:55 Resp 16 11/15/21 14:52 BP 134/85 11/15/21 12:00 Pulse Ox 93 11/15/21 14:52 O2 Del Method 11/15/21 14:52 O2 Flow Rate 2 11/15/21 14:52 11/15/21 11/15/21 11/15/21 06:59 14:59 22:59 Intake Total 1979 480 / 480 Output Total 300 / 300 Balance 1979 180 / 180 Weight last 48 hrs Weight 134 lb 6.4 oz Physical Exam Narrative: General: Patient is awake alert and oriented, in no acute distress Neck: No JVD Respiratory: Auscultation: Reduced breath sound bilaterally, monophonic wheezing in the left upper lung zone anteriorly Cardiovascular: Regular rate and rhythm, S1-S2 present, distant heart sound, no murmur, no peripheral edema Abdomen: Soft, nontender, nondistended, positive bowel sound Musculoskeletal: No obvious joint deformity Skin: No rash Lymphatic: The axillary and inguinal lymph node groups are not examined Neuro: Mental status is normal, no gross cranial nerve deficit, gross normal motor function Data : 11/14/21 09:41 11/14/21 09:41 Micro: Microbiology 11/14/21 08:04 Gram Stain - Final Lung Right Middle Lobe Bronchial Washings Culture - Preliminary A&P Assessment and plan (1) COPD (chronic obstructive pulmonary disease): This is a 66-year-old lady with gold class D COPD. Her pulmonary function test is consistent with severe airflow obstruction with hyperinflation, air trapping and severely reduced DLCO. The patient was found to be a candidate for bronchoscopic lung volume reduction and underwent left upper lobe endobronchial valve placement on . A total of 5 valves were placed. She had 2 9 mm valve placed. One was in the lingular segment of the other 1 was on the superior subsegment of apicoposterior segmental bronchus. The other 3 valves were 7 mm. The procedure was completed without any complications. The valves are in good position. As there is approximately 20% risk of developing pneumothorax, the patient will be closely monitored and managed in the medical ICU. Chest x-ray obtained this morning did not reveal any significant atelectasis of the left upper lobe which is concerning regarding the efficacy of the endobronchial valves and optimal positioning. Unwilling to obtain a CT scan of the chest and see if the patient needs repeat bronchoscopic inspection and evaluation. The patient was initiated empirically on prednisone and Levaquin on 11/13. She will be on Solu-Medrol 40 mg daily and Levaquin. The patient will receive DuoNeb every 6 hours and Pulmicort every 12 hours. (2) Chronic respiratory failure with hypoxia: The patient has chronic hypoxic respiratory failure. She typically uses 2 to 3 L of oxygen. We will titrate her oxygen with a goal of 88% and above oxygen saturation. She is currently using 2 L of oxygen. (3) Hypertension: The patient was started on amlodipine and losartan those are her home medications. (4) Hyperlipidemia: She was on 10 mg of pravastatin, this was switched to 20 mg of atorvastatin in the hospital. Attestations Medical Necessity Statement*: The patient is expected to be in the hospital for 3 days for close management due to the risk of developing life-threatening pneumothorax. Coding Level of Care Code Acute Credit Risk Specialist for [facility] Diagnoses COPD (chronic obstructive pulmonary disease) J44.9 Chronic respiratory failure with hypoxia J96.11 Hypertension I10 Hyperlipidemia E78.5
--- NOTE | 2021-11-15 17:40 | ECG_ITS ---
[facility] Test Date: 2021-11-15 Pat Name: Melinda Spear Department: Room: [facility] Gender: Female Interior Wirer: : 1955 Requested By: Minted Art Order Number: [id number] Mary Grace MD: Moises Jones M.D. Measurements Intervals [place] Rate: 145 P: 232 SC: 134 QRS: 103 QRSD: 105 T: 57 QT: 303 QTc: 472 Interpretive Statements ECTOPIC ATRIAL TACHYCARDIA, POSSIBLE ATRIAL FLUTTER RIGHT AXIS DEVIATION [QRS AXIS > 100] MODERATE ST DEPRESSION [0.05+ mV ST DEPRESSION] No previous ECG available for comparison Electronically Signed On 11-16-2021 8:53:28 CDT by Moises Jones M.D. [id number]
[2021-11-15] MEDS: atorvastatin 40 mg Tablet 20 MG PO (20:29)
[2021-11-15] MEDS: metoprolol tartrate 25 mg Tablet 12.5 MG PO (20:29)
[2021-11-15 21:04] LABS: Troponin T (5th) Once 16 ng/L (0-10)
[2021-11-16] VITALS (26 sets, daily range): BP systolic 106–154; BP diastolic 59–98; PULSE 61–108; RESP 13–21; TEMP 36.4–36.8; O2SAT 91–97
[2021-11-16] MEDS: ipratropium-albuterol 3 mL Neb INHALATION ×4 (02:57→20:27)
[2021-11-16] MEDS: levoFLOXacin 750 mg Tablet PO (05:00)
--- NOTE | 2021-11-16 07:00 | XR_ITS ---
WS: [id number] Exam: XR chest 1V portable [id number] Date/Time of Exam: 11/16/2021 4:02 AM Reason For Exam: check valve placement Comparison 11/15/2021. The lungs are clear and fully expanded. Normal cardiomediastinal silhouette. Postoperative changes of the left hilum again noted. Monitoring leads superimpose the chest. Single old left rib fracture not ed. XR/XR chest 1V portable [id number] IMPRESSION: 1. No acute cardiopulmonary finding. No change.
[2021-11-16] MEDS: budesonide 0.5 mg/2 mL Neb INHALATION ×2 (07:37→20:27)
[2021-11-16] MEDS: metoprolol tartrate 25 mg Tablet 12.5 MG PO ×2 (09:32→19:38)
[2021-11-16] MEDS: amlodipine 5 mg Tablet PO (09:32)
[2021-11-16] MEDS: famotidine 20 mg Tablet PO ×2 (09:32→18:06)
[2021-11-16] MEDS: losartan 50 mg Tablet PO (09:32)
[2021-11-16] MEDS: enoxaparin 40 mg/0.4 mL Syringe SUBCUT (09:32)
--- NOTE | 2021-11-16 09:55 | PC.NURSE ---
Ambulated 200 feet on 2LNC. Patient's oxygen saturation dropped to 84%, HR 130s. Patient sats recovered quickly with rest.
--- NOTE | 2021-11-16 11:00 | PM.PN ---
Subjective Subjective: The patient was seen and examined. She is doing well this morning. Yesterday evening, the patient went to an episode of SVT with a heart rate ranging between 130-140s. The patient had spontaneously converted to sinus rhythm before beta-krissy was given. She was started on low-dose metoprolol overnight. The patient also underwent a CT scan of the chest to evaluate for efficacy of the endobronchial valves. The patient has developed atelectasis with volume loss in the left upper lobe however, the atelectasis is not complete. There is no evidence of pneumothorax. The patient had been walking around the unit. She tells me her exertional shortness of breath is better than before. Chest x-ray this morning revealed no pneumothorax. No growth on culture from the right middle lobe BAL. Medications: Reviewed: Yes Vitals/I&O/Wt Last Vital Signs Temp 98 F 11/16/21 04:00 Pulse 108 H 11/16/21 09:00 Resp 18 11/16/21 09:00 BP 149/82 11/16/21 09:32 Pulse Ox 91 11/16/21 09:00 O2 Del Method 11/16/21 09:00 O2 Flow Rate 2 11/16/21 09:00 FiO2 2 11/16/21 02:57 11/15/21 11/16/21 11/16/21 22:59 06:59 14:59 Intake Total 490 / 970 240 / 1210 240 / 240 Output Total 200 / 200 Balance 490 / 670 240 / 910 40 / 40 Weight last 48 hrs Weight 141 lb Weight 134 lb 6.4 oz Physical Exam Narrative: General: Patient is awake alert and oriented, in no acute distress Neck: No JVD Respiratory: Auscultation: Reduced breath sound bilaterally, no crackles wheezing or rhonchi Cardiovascular: Regular rate and rhythm, S1-S2 present, distant heart sound, no murmur, no peripheral edema Abdomen: Soft, nontender, nondistended, positive bowel sound Musculoskeletal: No obvious joint deformity Skin: No rash Lymphatic: The axillary and inguinal lymph node groups are not examined Neuro: Mental status is normal, no gross cranial nerve deficit, gross normal motor function Data : 11/14/21 09:41 11/14/21 09:41 Micro: Microbiology 11/14/21 08:04 Gram Stain - Final Lung Right Middle Lobe Bronchial Washings Culture - Final A&P Assessment and plan (1) COPD (chronic obstructive pulmonary disease): This is a 66-year-old lady with gold class D COPD. Her pulmonary function test is consistent with severe airflow obstruction with hyperinflation, air trapping and severely reduced DLCO. The patient was found to be a candidate for bronchoscopic lung volume reduction and underwent left upper lobe endobronchial valve placement on . A total of 5 valves were placed. She had 2 9 mm valve placed. One was in the lingular segment of the other 1 was on the superior subsegment of apicoposterior segmental bronchus. The other 3 valves were 7 mm. The procedure was completed without any complications. The valves are in good position. As there is approximately 20% risk of developing pneumothorax, the patient will be closely monitored and managed in the medical ICU. CT scan of the chest without contrast yesterday revealed developing subtotal atelectasis of the left upper lobe. The volume of the left upper lobe and the left lung in general is lesser than what it was before the procedure. The patient was initiated empirically on prednisone and Levaquin on 11/13. She will be on Solu-Medrol 40 mg daily and Levaquin. The patient will receive DuoNeb every 6 hours and Pulmicort every 12 hours. The patient is safe to transfer to the [facility] floor for the next 24 hours. As the patient did not achieve complete atelectasis of the left upper lobe, the risk of pneumothorax is less. The patient had been walking around the unit without much difficulty. The patient reports improved shortness of breath with exertion. (2) SVT (supraventricular tachycardia): The patient was in SVT yesterday. This had converted to sinus rhythm spontaneously. Am starting the patient on low-dose beta-krissy. (3) Chronic respiratory failure with hypoxia: The patient has chronic hypoxic respiratory failure. She typically uses 2 to 3 L of oxygen. We will titrate her oxygen with a goal of 88% and above oxygen saturation. She is currently using 2 L of oxygen. (4) Hypertension: The patient was started on amlodipine and losartan those are her home medications. At home, the patient is also on chlorthalidone which she is not on currently. However since she is on beta-krissy her pressure should be okay. (5) Hyperlipidemia: She was on 10 mg of pravastatin, this was switched to 20 mg of atorvastatin in the hospital. The plan is for her to go home tomorrow morning. Attestations Medical Necessity Statement*: The patient is expected to be in the hospital for 3 days for close management due to the risk of developing life-threatening pneumothorax. The plan is for her to go home tomorrow. Coding Level of Care Code Acute Pearl Diver for [facility] Fwd Diagnoses COPD (chronic obstructive pulmonary disease) J44.9 SVT (supraventricular tachycardia) I47.1 Chronic respiratory failure with hypoxia J96.11 Hypertension I10 Hyperlipidemia E78.5
--- NOTE | 2021-11-16 11:50 | PC.CHAP ---
Pastoral Care Encounter/Spiritual Assessment Type of Contact [] Declined theater teacher visit [] Patient/Family/Request visit [] Outpatient visit [] Follow-up visit [] Physician referral [] Code/Alert [x] Routine visit [] Staff referral [] Actively dying [] Patient sleeping [x] Family support [] [] Out of room [] Palliative care [] [] Receiving care in room [] Pre-surgical visit [] Trauma [] Long length of stay [x] ICU visit [x] Other: Relational/Emotional Strength [] Patient feels connected with others/family/visitors/staff [] Distress [] Loneliness/isolation [] Abandonment Spirituality of Patient [] Person of Suzie [] Attends [employer] of their Suzie [] Believes in Prayer [] Reads Bible or Zoroastrian materials [] There are Spiritual issues to be addressed Core Drier Interventions [x] Prayer [] Active listening [] Non-anxious presence [] Spiritual/emotional support [] Crisis/trauma care [] Spiritual counseling [] Bereavement support [] Provided bereavement packet [] Provided Bible/devotional materials [] Provided toy/stuffed animal, coloring book to patient or family member [] Provided Communion [] Anointing/[place] [] Salvation [x] Completed spiritual assessment [] Other: Impact on Illness or Injury [] Angry [] Fearful [] Anxious [] Often cries [] Exhaustion [] Unable to work [] Unable to attend baptist [] Unable to walk/stand [] Unable to read [] Unable to drive [] Unable to eat/drink [] Unable to sleep [] Unable to be with family [] Patient intubated [] Other: Summary Time spent with patient
--- NOTE | 2021-11-16 14:30 | PC.NURSE ---
Report called to Andreas. No further questions. Patient and belongings taken to to room 268.
[2021-11-16] MEDS: atorvastatin 40 mg Tablet 20 MG PO (19:38)
--- NOTE | 2021-11-16 21:54 | PC.NURSE ---
Bedside report done with BRENTON Johns.
[2021-11-17] VITALS (9 sets, daily range): BP systolic 123–175; BP diastolic 78–86; PULSE 68–89; RESP 14–18; TEMP 36.4–36.7; O2SAT 94–96
[2021-11-17] MEDS: ipratropium-albuterol 3 mL Neb INHALATION ×2 (02:39→08:12)
[2021-11-17] MEDS: levoFLOXacin 750 mg Tablet PO (04:41)
--- NOTE | 2021-11-17 07:00 | XRR_ITS ---
PROCEDURE INFORMATION: Exam: XR Chest Exam date and time: 11/17/2021 6:52 AM Age: 66 years old Clinical indication: Device placement; Other: Post bronch; Additional info: Status post bronchoscopic lung volume reduction TECHNIQUE: Imaging protocol: Radiologic exam of the chest. Views: 1 view. COMPARISON: CR XR chest 1V portable [id number] 11/16/2021 4:08 AM FINDINGS: Lungs: There are normal lung volumes without interstitial or airspace opacities. Pleural spaces: There are no pleural effusions or pneumothorax. Heart/Mediastinum: The heart size is normal. There is a mildly tortuous thoracic aorta. The trachea is in the midline. Left hilar region radiopaque densities are once again seen, consistent with postprocedural change (possible endobronchial valves). Bones/joints: No acute abnormalities. Soft tissues: Multiple external densities are seen overlying the chest, limiting assessment. XR/XR chest 1V [id number] IMPRESSION: No confluent infiltrates in the lungs.
[2021-11-17] MEDS: budesonide 0.5 mg/2 mL Neb INHALATION (08:12)
[2021-11-17] MEDS: famotidine 20 mg Tablet PO (08:30)
[2021-11-17] MEDS: enoxaparin 40 mg/0.4 mL Syringe SUBCUT (08:30)
[2021-11-17] MEDS: metoprolol tartrate 25 mg Tablet 12.5 MG PO (08:30)
[2021-11-17] MEDS: amlodipine 5 mg Tablet PO (08:30)
[2021-11-17] MEDS: losartan 50 mg Tablet PO (08:30)
--- NOTE | 2021-11-17 09:00 | PM.PN ---
Subjective Subjective: The patient was seen and examined this morning. She is doing well. No overnight events. The patient has mild cough. Chest x-ray this morning revealed no evidence of pneumothorax this morning. Medications: Reviewed: Yes Vitals/I&O/Wt Last Vital Signs Temp 98.1 F 11/17/21 08:00 Pulse 86 11/17/21 08:18 Resp 18 11/17/21 08:13 BP 175/86 11/17/21 08:30 Pulse Ox 94 11/17/21 08:13 O2 Del Method 11/17/21 08:13 O2 Flow Rate 2 11/17/21 08:13 FiO2 2 11/16/21 02:57 11/16/21 11/17/21 11/17/21 22:59 06:59 14:59 Intake Total 60 / 540 300 / 840 Balance 60 / 140 300 / 440 Weight last 48 hrs Weight 139 lb Weight 141 lb Physical Exam Narrative: General: Patient is awake alert and oriented, in no acute distress Neck: No JVD Respiratory: Auscultation: Reduced breath sound bilaterally, no crackles wheezing or rhonchi Cardiovascular: Regular rate and rhythm, S1-S2 present, distant heart sound, no murmur, no peripheral edema Abdomen: Soft, nontender, nondistended, positive bowel sound Musculoskeletal: No obvious joint deformity Skin: No rash Lymphatic: The axillary and inguinal lymph node groups are not examined Neuro: Mental status is normal, no gross cranial nerve deficit, gross normal motor function Data : 11/14/21 09:41 11/14/21 09:41 Micro: Microbiology 11/14/21 08:04 Gram Stain - Final Lung Right Middle Lobe Bronchial Washings Culture - Final A&P Assessment and plan (1) COPD (chronic obstructive pulmonary disease): This is a 66-year-old lady with gold class D COPD. Her pulmonary function test is consistent with severe airflow obstruction with hyperinflation, air trapping and severely reduced DLCO. The patient was found to be a candidate for bronchoscopic lung volume reduction and underwent left upper lobe endobronchial valve placement on . A total of 5 valves were placed. She had 2 9 mm valve placed. One was in the lingular segment of the other 1 was on the superior subsegment of apicoposterior segmental bronchus. The other 3 valves were 7 mm. The procedure was completed without any complications. The valves are in good position. She was in the ICU for the first 2 days and then it was later moved to the floor yesterday. CT scan of the chest without contrast on 11/15 revealed developing subtotal atelectasis of the left upper lobe. The volume of the left upper lobe and the left lung in general is lesser than what it was before the procedure. The patient was treated with standing DuoNeb and Pulmicort nebulization and IV Solu-Medrol. At this point the patient is safe for discharge. She will take prednisone 40 mg for 4 more days and Levaquin for 4 more days. The patient already has these prescriptions at home. She can resume all her home medications for the COPD. (2) SVT (supraventricular tachycardia): The patient was in SVT on 11/15. this had converted to sinus rhythm spontaneously. The patient had been receiving beta-krissy at the hospital without any recurrence of SVT. However, the patient tells me that she has no symptoms or has never felt palpitation before. At this point, I think the patient can be discharged off the beta-krissy. I have informed her that if she starts having palpitation to let us know and at that point the patient could be a candidate for prophylactic therapy. There is no necessity for considering ablation at this time. (3) Chronic respiratory failure with hypoxia: The patient has chronic hypoxic respiratory failure. She typically uses 2 to 3 L of oxygen. She will continue with her home oxygen supplementation. (4) Hypertension: She will continue with her home dose of losartan and amlodipine. (5) Hyperlipidemia: She will go back on using pravastatin 10 mg. The patient will be discharged today. I will follow-up with her in 2 weeks time with a PFT and 6-minute walk test. Attestations Medical Necessity Statement*: The patient is getting discharged today. Coding Level of Care Code Acute [employer] [facility] for [facility] Diagnoses COPD (chronic obstructive pulmonary disease) J44.9 SVT (supraventricular tachycardia) I47.1 Chronic respiratory failure with hypoxia J96.11 Hypertension I10 Hyperlipidemia E78.5
--- NOTE | 2021-11-17 09:30 | PM.DCS ---
Discharge Providers Date of Admission: 11/14/21 08:50 Date of Discharge: November 17, 2021 Attending Provider at Admission: Jackson Cordova MD Attending Provider at Discharge: Jackson Cordova MD Consults: None Primary Care Provider: Jennifer Nevarez Diagnoses at Discharge Discharge Diagnosis (1) COPD (chronic obstructive pulmonary disease): Details from hospital stay: This is a 66-year-old lady with gold class D COPD. Her pulmonary function test is consistent with severe airflow obstruction with hyperinflation, air trapping and severely reduced DLCO. The patient was found to be a candidate for bronchoscopic lung volume reduction and underwent left upper lobe endobronchial valve placement on .? A total of 5 valves were placed.? She had 2 9 mm valve placed.? One was in the lingular segment of the other 1 was on the superior subsegment of apicoposterior segmental bronchus.? The other 3 valves were 7 mm. The procedure was completed without any complications.? The valves are in good position. She was in the ICU for the first 2 days and then it was later moved to the floor on 11/16. CT scan of the chest without contrast on 11/15 revealed developing subtotal atelectasis of the left upper lobe.? The volume of the left upper lobe and the left lung in general is lesser than what it was before the procedure. The patient was treated with standing DuoNeb and Pulmicort nebulization and IV Solu-Medrol. At this point the patient is safe for discharge.? She will take prednisone 40 mg for 4 more days and Levaquin for 4 more days.? The patient already has these prescriptions at home.? She can resume all her home medications for the COPD. Status: Acute (2) SVT (supraventricular tachycardia): Details from hospital stay: The patient was in SVT on 11/15. this had converted to sinus rhythm spontaneously. The patient had been receiving beta-krissy at the hospital without any recurrence of SVT.? However, the patient tells me that she has no symptoms or has never felt palpitation before. At this point, I think the patient can be discharged off the beta-krissy.? I have informed her that if she starts having palpitation to let us know and at that point the patient could be a candidate for prophylactic therapy. Status: Acute (3) Chronic respiratory failure with hypoxia: Details from hospital stay: The patient has chronic hypoxic respiratory failure.? She typically uses 2 to 3 L of oxygen.? She will continue with her home oxygen supplementation. Status: Acute (4) Hypertension: Details from hospital stay: She will continue with her home dose of losartan and amlodipine. Status: Acute (5) Hyperlipidemia: Details from hospital stay: She will go back on using pravastatin 10 mg. Status: Acute Reason for Visit Reason for Visit: COPDFU Brief History: Melinda Spear is a 66 year old female who was admitted to the intensive care unit after undergoing bronchoscopic lung volume reduction by aspiration valve placement in the left upper lobe. The patient has gold class D COPD. Her latest pulmonary function test in July 2021 revealed an FEV1 FVC ratio of 35% with FEV1 1.86 L which is 37% of predicted and a forced vital capacity of 2.45 L which is 83% of predicted.? Her total lung capacity is 131%, residual volume of 196% and DLCO of 33%. Her CT scan for evaluation of bronchoscopic lung volume reduction showed her to be candidate for left upper lobe valve deployment.? There is fascial integrity on the left side.? She has 61% emphysema in the left upper lobe with a heterogeneity score of 18.? The volume of the left upper lobe is more than 1500 cc.? The patient had a 5 mm right lower lobe lung nodule that had been stable for more than 2 years. Her nocturnal oximetry was consistent with nocturnal hypoventilation with desaturation. The patient has currently been using 2 to 3 L of oxygen. On her latest 6-minute walk test the patient walked 500 feet.? Her baseline PCO2 level is around 50. Her other medical history includes hypertension, hyperlipidemia, allergic rhinosinusitis.? Her echocardiogram revealed normal ejection fraction with grade 1 diastolic dysfunction.? No valvular abnormalities. The patient underwent 5 endobronchial valve placement to achieve occlusion of the left upper lobe and lingular airways.? Postprocedure, the patient had been doing well in the ICU.? Hospital Course Hospital Course Her hospital course was uncomplicated. She had no evidence of pneumothorax postprocedure. The patient was on bedrest for 24 hours after the procedure. After that the patient has started ambulation. The patient had reported improvement in her exertional shortness of breath. The patient had developed SVT on the second day of hospital admission which had converted to sinus rhythm spontaneously. The patient has been on low-dose beta-krissy without any recurrence of SVT. Her blood pressure had remained stable. She was empirically treated with corticosteroid and Levaquin. She received DuoNeb and Pulmicort [id number]. Physical Exam Narrative: General: Patient is awake alert and oriented, in no acute distress Neck: No JVD Respiratory: Auscultation: Reduced breath sound bilaterally, no crackles wheezing or rhonchi Cardiovascular: Regular rate and rhythm, S1-S2 present, distant heart sound, no murmur, no peripheral edema Abdomen: Soft, nontender, nondistended, positive bowel sound Musculoskeletal: No obvious joint deformity Skin: No rash Lymphatic: The axillary and inguinal lymph node groups are not examined Neuro: Mental status is normal, no gross cranial nerve deficit, gross normal motor function Discharge Data Studies Completed and Pending Completed Studies During Hospitalization Category Date Time Status CT chest wo con 19304 Routine Cat Scan 11/15/21 15:58 Completed CXRP [XR chest 1V portable [id number]] Routine Exams 11/16/21 07:00 Completed XR chest 1V [id number] Routine Exams 11/17/21 07:00 Completed XR chest 1V portable [id number] Routine Exams 11/15/21 07:00 Completed XR chest 1V portable [id number] Stat Exams 11/14/21 08:41 Completed Radiology Impressions Chest CT 11/15/21 15:58 IMPRESSION: 1. Pulmonary emphysema 2. Old granulomatous disease 3. New instrumentation in multiple left upper lobe bronchi 4. No pneumothorax. Chest X-Ray 11/17/21 07:00 IMPRESSION: No confluent infiltrates in the lungs. Laboratory Results WBC 13.8 10^3/uL (4.0-10.0) H 11/14/21 09:41 RBC 4.72 10^6/uL (4.1-5.3) 11/14/21 09:41 Hgb 14.1 g/dL (11.5-15.3) 11/14/21 09:41 Hct 42.9 % (37.0-47.0) 11/14/21 09:41 MCV 90.9 fl (81-99) 11/14/21 09:41 MCH 29.9 pg (28.0-34.0) 11/14/21 09:41 MCHC 32.9 g/dL (30.0-36.0) 11/14/21 09:41 RDW 13.1 % (12.1-15.1) 11/14/21 09:41 Plt Count 269 10^3/cmm (130-400) 11/14/21 09:41 MPV 9.2 fL (7.4-10.4) 11/14/21 09:41 Neut % (Auto) 86.7 % 11/14/21 09:41 Lymph % (Auto) 6.9 % 11/14/21 09:41 [place] % (Auto) 4.7 % 11/14/21 09:41 Eos % (Auto) 0.5 % 11/14/21 09:41 Baso % (Auto) 0.4 % 11/14/21 09:41 Neut # (Auto) 11.97 10^3/uL (1.8-7.7) H 11/14/21 09:41 Lymph # (Auto) 1.0 10^3/uL (0.8-4.8) 11/14/21 09:41 [place] # (Auto) 0.7 10^3/uL (0.2-0.9) 11/14/21 09:41 Eos # (Auto) 0.1 10^3/uL (0.0-0.8) 11/14/21 09:41 Baso # (Auto) 0.1 10^3/uL (0.0-0.1) 11/14/21 09:41 Nucleated RBC % (auto) 0 % 11/14/21 09:41 Nucleated RBCs # 0.0 /100WBC 11/14/21 09:41 Sodium 136 mmol/L (136-145) 11/14/21 09:41 Potassium 3.6 mmol/L (3.5-5.1) 11/14/21 09:41 Chloride 97 mmol/L (98-107) L 11/14/21 09:41 Carbon Dioxide 27 mmol/L (22-29) 11/14/21 09:41 Anion Gap 15.6 (5-19) 11/14/21 09:41 BUN 16 mg/dL (8-23) 11/14/21 09:41 Creatinine 0.9 mg/dL (0.5-0.9) 11/14/21 09:41 GFR Calculation 62.5 mL/min (90-130) L 11/14/21 09:41 Glucose 186 mg/dL (65-115) H 11/14/21 09:41 Calculated Osmolality 288 mOsm/kg (285-295) 11/14/21 09:41 Calcium 9.0 mg/dL (8.5-10.5) 11/14/21 09:41 Troponin T Gen 5 ng/L 16 ng/L (0-10) H 11/15/21 09:41 Vitals Last Vital Signs Temp 98.1 F 11/17/21 08:00 Pulse 86 11/17/21 08:18 Resp 18 11/17/21 08:13 BP 175/86 11/17/21 08:30 Pulse Ox 94 11/17/21 08:13 O2 Del Method 11/17/21 08:13 O2 Flow Rate 2 11/17/21 08:13 FiO2 2 11/16/21 02:57 Discharge Plan Discharge Patient Disposition: Home Condition: Stable Prescriptions: Continued losartan [Cozaar] 50 mg tablet 50 mg PO DAILY cholecalciferol (vitamin D3) 25 mcg (1,000 unit) capsule 25 mcg PO DAILY mecobalamin (vitamin B12) 1,000 mcg tablet,chewable 1,000 mcg PO DAILY pravastatin 10 mg tablet 10 mg PO DAILY albuterol sulfate 2.5 mg /3 mL (0.083 %) solution for nebulization 2.5 mg INHALATION Q4H PRN (Reason: Shortness Of Breath) ipratropium-albuterol 0.5 mg-3 mg(2.5 mg base)/3 mL solution for nebulization 3 ml INHALATION Q6H PRN (Reason: Shortness Of Breath) fexofenadine [Allergy Relief (fexofenadine)] 180 mg tablet 180 mg PO DAILY amlodipine [Norvasc] 5 mg tablet 5 mg PO DAILY chlorthalidone 25 mg tablet 25 mg PO DAILY fluticasone propionate [Flonase Allergy Relief] 50 mcg/actuation spray,suspension 2 spray intranasal DAILY Rx Instructions: administer into each nostril Asmanex HFA 100 mcg/actuation HFA aerosol inhaler See Rx Instructions .ROUTE .COMPLEX Qty: 26 3RF Dose Instruction: Inhale 2 puffs by mouth twice daily Rx Instructions: Inhale 2 puffs by mouth twice daily Stiolto Respimat 2.5-2.5 mcg/actuation mist 2 puff inhalation DAILY 90 Days Qty: 12 4RF albuterol sulfate 90 mcg/actuation HFA aerosol inhaler 2 puff INHALATION Q4H PRN (Reason: Shortness Of Breath) prednisone 20 mg tablet 40 mg PO DAILY Qty: 8 0RF levofloxacin 750 mg tablet 750 mg PO DAILY Qty: 4 0RF Discharge Orders: Discharge Order (Routine); Ordered 11/17/21 Ordered By: Jackson Cordova Referrals: Jennifer Nevarez PA [Primary Care Provider] - 11/21/21 1:15 pm Patient Instructions: Opioid Safety Discharge Attestations Time Spent in Discharge Care*: less than 30 min Quality Metrics Clinical Quality Measures [ No reported AMI, CVA or VTE this stay] Coding Level of Care Code Acute g FW [place] note Diagnoses COPD (chronic obstructive pulmonary disease) J44.9 SVT (supraventricular tachycardia) I47.1 Chronic respiratory failure with hypoxia J96.11 Hypertension I10 Hyperlipidemia E78.5
--- NOTE | 2021-11-17 12:04 | PC.SOCIAL ---
IMM updated IMM updated with patient. Verbalized an understanding. Copy Pg 2 provided. Initialled, dated, timed, and placed in chart.
== END 2021-11-17 10:47 | disposition home or self-care (01) | DRG 164 ==
LOC: ICU 08:51 → MEDSURG 11-16 15:02
PROVIDERS: Admitting Provider Internal Medicine Critical Care Medicine; PCP Physician Assistant; Visit Provider Internal Medicine Critical Care Medicine
PROC: 0BH Respiratory System, Insertion (ICD-10-PCS; CPT 31647; principal; 2021-11-14 07:00)
DX: J43.9 Emphysema, unspecified (principal); I47.1 Supraventricular tachycardia; J96.11 Chronic respiratory failure with hypoxia; J98.11 Atelectasis; I10 Essential (primary) hypertension; E78.5 Hyperlipidemia, unspecified; Z87.891 Personal history of nicotine dependence; Z99.81 Dependence on supplemental oxygen
CPT/HCPCS: 31624; 31647; 36415; 71045; 71250; 80048; 84484; 85025; 87070; 87205; 93005; 94640; 96372; J1100; J1650; J2250; J2405; J2704; J2920; J3010; J3490; J7030; J7626

== ENCOUNTER 2021-11-19 10:24 | Emergency (ER) | payer MEDICARE, MEDICAID, SELFPAY ==
[2021-11-19 10:33] VITALS: BP 158/117; PULSE 90; RESP 19; O2SAT 93; BMI 23.8
--- NOTE | 2021-11-19 10:37 | XRR_ITS ---
PROCEDURE INFORMATION: Exam: XR Chest Exam date and time: 11/19/2021 10:47 AM Age: 66 years old Clinical indication: Cough and dyspnea; Prior surgery; Surgery type: Lung; Additional info: Dyspnea/cough TECHNIQUE: Imaging protocol: Radiologic exam of the chest. Views: 1 view. COMPARISON: CR (CHEST, ) 11/17/2021 6:52 AM FINDINGS: Lungs: Emphysematous change , interstitial prominence, chronic granulomatous disease. Postoperative change in the left suprahilar region, along with asymmetric elevation of the left hemidiaphragm. Pleural spaces: No dependent pleural effusion. Heart/Mediastinum: No cardiomegaly. Vasculature: Calcification of the thoracic aorta. Bones/joints: Osteopenia, thoracic spine compression fractures, and degenerative change. Other findings: Brassiere artifact. XR/XR chest 1V portable [id number] IMPRESSION: 1. Emphysematous change, interstitial prominence, chronic granulomatous disease. 2. Postoperative change in the left suprahilar region, along with asymmetric elevation of the left hemidiaphragm.
--- NOTE | 2021-11-19 10:37 | ECG_ITS ---
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 Measurements Intervals [place] Rate: 80 P: 80 RI: 180 QRS: 86 QRSD: 93 T: 72 QT: 376 QTc: 436 Interpretive Statements SINUS RHYTHM Compared to ECG 11/15/2021 17:40:20 Right-axis deviation no longer present ST (T wave) deviation no longer present Electronically Signed On 11-19-2021 22:00:36 CDT by Moises Jones M.D. [id number]
[2021-11-19 10:52] LABS: Basophils # 0.1 10^3/uL (0.0-0.1); Basophils % 0.4 %; Eosinophils # 0.2 10^3/uL (0.0-0.8); Eosinophils % 1.1 %; Hematocrit 45.9 % (37.0-47.0); Hemoglobin 15.3 g/dL (11.5-15.3); Lymphocytes % 10.2 %; Mean Corpuscular HGB Conc 33.3 g/dL (30.0-36.0); Mean Corpuscular Hemoglobin 30.5 pg (28.0-34.0); Mean Corpuscular Volume 91.4 fl (81-99); Mean Platelet Volume 9.2 fL (7.4-10.4); Monocytes # 2.1 10^3/uL (0.2-0.9); Monocytes % 10.5 %; Neutrophils # 14.88 10^3/uL (1.8-7.7); Neutrophils % 76.4 %; Nucleated Red Blood Cells % 0 %; Platelet Count 332 10^3/cmm (130-400); Red Blood Count 5.02 10^6/uL (4.1-5.3); Red Cell Distribution Width 13.2 % (12.1-15.1); White Blood Count 19.5 10^3/uL (4.0-10.0)
--- NOTE | 2021-11-19 11:09 | PC.NURSE ---
PT PLACED ON CONTINUOUS NIBP, SPO2, AND CM
[2021-11-19 11:17] VITALS: O2SAT 85; O2SAT 88; O2SAT 91
[2021-11-19 11:32] LABS: Troponin(5th) Baseline 14 ng/L (0-10)
--- NOTE | 2021-11-19 11:33 | W.ED.CHESTPA ---
HPI - Chest Pain General: Chief Complaint: Chest Pain Stated Complaint: Chest Pain/ SOB Post op Time Seen by Provider: 11/19/21 10:36 Source: patient Mode of arrival: ambulatory History of Present Illness: 66-year-old female presents with complaints of left upper chest pain. Worse when she takes a deep breath. She recently had a lung volume reduction surgery done by bronchoscopy. She denies any pain radiating to her neck or arms. She has been increasingly short of breath particularly with activity. She has normally on oxygen but only uses it at night at 3 L/min and has not typically been using it during the day per her report. She denies any fever sweats or chills she has cough has been nonproductive she has duo nebs and is currently on prednisone 40 mg daily. No fever sweats chills no nausea vomiting diarrhea. MD complaint: chest pain Onset (ago): hour(s) Timing of current episode: episodic Prior episodes: No Onset: during rest Pain location: left chest (Upper) Pain radiation: none Severity: moderate Quality: aching Relieving factors: nothing Exacerbating factors: inspiration Context: recent surgery Associated symptoms: Reports dyspnea; Deny abdominal pain, diaphoresis, fever(s), leg edema, nausea, palpitations, sense of impending doom, syncope or vomiting Treatment prior to arrival: none Review of Systems Const: Reports: fatigue and malaise; Denies: fever(s), chills or diaphoresis ENMT: Denies: throat pain, ear or mastoid pain, nasal discharge or nasal congestion Card: Reports: chest pain; Denies: palpitations or syncope Resp: Reports: dyspnea, non-productive cough and wheezing; Denies: productive cough GI: Denies: abdominal pain, nausea or vomiting : Denies: flank pain, difficulty voiding, dysuria, urinary frequency or urinary urgency Skin/Breast: Denies: rash or pruritus PFSH ED PFSH: Medical History B12 deficiency COPD (chronic obstructive pulmonary disease) HTN (hypertension) Hyperlipidemia Surgical History H/O tubal ligation Family History Father Cancer Social History Smoking and tobacco status: former smoker Quit status (tobacco): has quit using tobacco Year quit tobacco: 2006 - 2PPD x 30 Years Alcohol intake: current Alcohol intake frequency: holidays/special occasions only Alcohol type: beer Lives independently: Yes Household members: spouse Marital status: Current occupational status: retired History of recent travel: No Current gender identity: Female Physical Exam Const: GENERAL APPEARANCE: cooperative and comfortable ORIENTATION/CONSCIOUSNESS: Yes awake, Yes oriented to person, Yes oriented to place and Yes oriented to time HENMT: COMMON NORMALS: normocephalic, atraumatic and hearing grossly normal bilaterally HEAD & SCALP: normocephalic and atraumatic Resp: COMMON NORMALS: normal respiratory effort, No retractions and No use of accessory muscles AUSCULTATION: wheezes and diminished lung sounds on the left in the upper lung robins Cardio: COMMON NORMALS: regular rate, regular rhythm and No murmurs present (Cardio) RATE: regular rate RHYTHM: regular rhythm GI: COMMON NORMALS: Soft to palpation and No hepatosplenomegaly present AUSCULTATION: Yes normoactive bowel sounds PALPATION: Yes Soft to palpation, No Tenderness to palpation present (GI), No Guarding due to palpation present (GI) and Yes No hepatosplenomegaly present Extremity: COMMON NORMALS: normal to inspection, capillary refill normal, no clubbing, cyanosis or edema, no calf tenderness and no pedal edema Neuro: SENSORIUM/ORIENTATION: Yes oriented to person, Yes oriented to place and Yes oriented to time Skin: COMMON NORMALS: no rashes or lesions noted GENERAL SKIN EXAM: no rashes or lesions noted Course Vital Signs: Vital signs: Vital Signs Pulse Rate 68 11/19/21 12:35 Respiratory Rate 16 11/19/21 12:05 Blood Pressure 135/87 11/19/21 12:35 Pulse Oximetry 96 11/19/21 12:35 Oxygen Delivery Me thod 11/19/21 12:05 Oxygen Flow Rate 3 11/19/21 12:05 MDM - Chest Pain Medical Decision Making Chest x-ray unremarkable for anything acute has chronic changes from her COPD. We did oxygen testing on her she is requiring 5 L with activity and 3 L at rest. White count is elevated I think that is due from the high-dose steroid she is currently taking. Discharge her home on the oxygen she is comfortable now continue her hydrocodone to use for the pain suspect some of this may be pleuritic chest pain from her procedure she has had this for several days and is not had an elevation in troponin and has a normal chest x-ray.Have her follow-up with Dr. Cordova in the next couple days if symptoms worsen return to emergency room. Medical Records I reviewed the patient's medical records. Lab Data I reviewed the patient's lab results. : 11/19/21 10:48 11/19/21 11:04 Radiology Impressions Chest X-Ray 11/19/21 10:37 IMPRESSION: 1. Emphysematous change, interstitial prominence, chronic granulomatous disease. 2. Postoperative change in the left suprahilar region, along with asymmetric elevation of the left hemidiaphragm. Laboratory Results WBC 19.5 10^3/uL (4.0-10.0) H 11/19/21 10:48 RBC 5.02 10^6/uL (4.1-5.3) 11/19/21 10:48 Hgb 15.3 g/dL (11.5-15.3) 11/19/21 10:48 Hct 45.9 % (37.0-47.0) 11/19/21 10:48 MCV 91.4 fl (81-99) 11/19/21 10:48 MCH 30.5 pg (28.0-34.0) 11/19/21 10:48 MCHC 33.3 g/dL (30.0-36.0) 11/19/21 10:48 RDW 13.2 % (12.1-15.1) 11/19/21 10:48 Plt Count 332 10^3/cmm (130-400) 11/19/21 10:48 MPV 9.2 fL (7.4-10.4) 11/19/21 10:48 Neut % (Auto) 76.4 % 11/19/21 10:48 Lymph % (Auto) 10.2 % 11/19/21 10:48 [place] % (Auto) 10.5 % 11/19/21 10:48 Eos % (Auto) 1.1 % 11/19/21 10:48 Baso % (Auto) 0.4 % 11/19/21 10:48 Neut # (Auto) 14.88 10^3/uL (1.8-7.7) H 11/19/21 10:48 Lymph # (Auto) 2.0 10^3/uL (0.8-4.8) 11/19/21 10:48 [place] # (Auto) 2.1 10^3/uL (0.2-0.9) H 11/19/21 10:48 Eos # (Auto) 0.2 10^3/uL (0.0-0.8) 11/19/21 10:48 Baso # (Auto) 0.1 10^3/uL (0.0-0.1) 11/19/21 10:48 Nucleated RBC % (auto) 0 % 11/19/21 10:48 Nucleated RBCs # 0.0 /100WBC 11/19/21 10:48 Sodium 136 mmol/L (136-145) 11/19/21 11:04 Potassium 3.2 mmol/L (3.5-5.1) L 11/19/21 11:04 Chloride 96 mmol/L (98-107) L 11/19/21 11:04 Carbon Dioxide 25 mmol/L (22-29) 11/19/21 11:04 Anion Gap 18.2 (5-19) 11/19/21 11:04 BUN 21 mg/dL (8-23) 11/19/21 11:04 Creatinine 0.9 mg/dL (0.5-0.9) 11/19/21 11:04 GFR Calculation 62.5 mL/min (90-130) L 11/19/21 11:04 Glucose 146 mg/dL (65-115) H 11/19/21 11:04 Calculated Osmolality 288 mOsm/kg (285-295) 11/19/21 11:04 Calcium 9.0 mg/dL (8.5-10.5) 11/19/21 11:04 Total Bilirubin 0.5 mg/dL (0.15-1.2) 11/19/21 11:04 AST 18 U/L (0-32) 11/19/21 11:04 ALT 32 U/L (0-33) 11/19/21 11:04 Alkaline Phosphatase 74 U/L (35-105) 11/19/21 11:04 Troponin T Baseline 14 ng/L (0-10) H 11/19/21 11:04 Total Protein 6.3 g/dL (6.6-8.7) L 11/19/21 11:04 Albumin 4.1 g/dL (3.5-5.2) 11/19/21 11:04 Globulin 2.2 g/dL (1.3-4.6) 11/19/21 11:04 Discharge Plan Discharge Patient Disposition: Home Clinical Impression: Atypical chest pain, COPD (chronic obstructive pulmonary disease), Chest pain, pleuritic Condition: Stable Prescriptions: New hydrocodone-acetaminophen 5-325 mg tablet 1 tab PO Q6H PRN (Reason: pain) Qty: 15 0RF No Action losartan [Cozaar] 50 mg tablet 50 mg PO DAILY cholecalciferol (vitamin D3) 25 mcg (1,000 unit) capsule 25 mcg PO DAILY mecobalamin (vitamin B12) 1,000 mcg tablet,chewable 1,000 mcg PO DAILY pravastatin 10 mg tablet 10 mg PO DAILY albuterol sulfate 2.5 mg /3 mL (0.083 %) solution for nebulization 2.5 mg INHALATION Q4H PRN (Reason: Shortness Of Breath) ipratropium-albuterol 0.5 mg-3 mg(2.5 mg base)/3 mL solution for nebulization 3 ml INHALATION Q6H PRN (Reason: Shortness Of Breath) fexofenadine [Allergy Relief (fexofenadine)] 180 mg tablet 180 mg PO DAILY amlodipine [Norvasc] 5 mg tablet 5 mg PO DAILY chlorthalidone 25 mg tablet 25 mg PO DAILY fluticasone propionate [Flonase Allergy Relief] 50 mcg/actuation spray,suspension 2 spray intranasal DAILY Rx Instructions: administer into each nostril Asmanex HFA 100 mcg/actuation HFA aerosol inhaler See Rx Instructions .ROUTE .COMPLEX Qty: 26 3RF Dose Instruction: Inhale 2 puffs by mouth twice daily Rx Instructions: Inhale 2 puffs by mouth twice daily Stiolto Respimat 2.5-2.5 mcg/actuation mist 2 puff inhalation DAILY 90 Days Qty: 12 4RF albuterol sulfate 90 mcg/actuation HFA aerosol inhaler 2 puff INHALATION Q4H PRN (Reason: Shortness Of Breath) prednisone 20 mg tablet 40 mg PO DAILY Qty: 8 0RF levofloxacin 750 mg tablet 750 mg PO DAILY Qty: 4 0RF Discharge Orders: Discharge ED (Routine); Ordered 11/19/21 Ordered By: Thai Dawn Referrals: Jennifer Nevarez PA [Primary Care Provider] - Discharge Diet: Usual diet Discharge Activity: Resume usual activity Patient Instructions: Opioid Safety, Pain Management Activity Restrictions/Additional Instructions: Contact Dr. Cordova's office tomorrow. Wear your oxygen continuously 3 L/min at rest and increased to 5 L/min with activity. Coding Level of Care Code ED Roller Presser Operator for Chg Fwd Exam Detailed
[2021-11-19 11:35] LABS: Alanine Aminotransferase 32 U/L (0-33); Albumin Level 4.1 g/dL (3.5-5.2); Alkaline Phosphatase 74 U/L (35-105); Anion Gap 18.2 (5-19); Aspartate Amino Transferase 18 U/L (0-32); Blood Urea Nitrogen 21 mg/dL (8-23); Carbon Dioxide 25 mmol/L (22-29); Chloride 96 mmol/L (98-107); Globulin 2.2 g/dL (1.3-4.6); Glomerular Filtration Rate 62.5 mL/min (90-130); Glucose 146 mg/dL (65-115); Osmolality Calculated 288 mOsm/kg (285-295); Potassium 3.2 mmol/L (3.5-5.1); Sodium 136 mmol/L (136-145); Total Bilirubin 0.5 mg/dL (0.15-1.2); Total Protein 6.3 g/dL (6.6-8.7)
[2021-11-19 12:05] VITALS: BP 132/73; PULSE 71; RESP 16; O2SAT 96
[2021-11-19 12:35] VITALS: BP 135/87; PULSE 68; O2SAT 96
[2022-11-21 08:39] LABS: ABG PCO2 38.8 mmHg (35-45); ABG PH Result 7.48 (7.35-7.45); HCO3 ABG 28.9 mmol/L (22-26); PO2 ABG 53.8 mmHg (80.0-100.0)
[2022-11-21 08:40] LABS: Base Excess ABG 5.1 mmol/L (-2.0-2.0); Blood Gas Allen Test pos; Blood Gas Sample Type Arterial; Oxygen Device room air; Oxygen Saturation ABG 88.9; Potassium Level - ABG 3.1 mmol/L (3.5-5.0)
[2022-11-21 08:41] LABS: Arterial Blood Gas Hematocrit 44.3 % (37-47); Blood Gas Sample Site Radial, right; Carboxyhemoglobin 0.6 %THgb (0.4-20.1); HGB O2 Sat 87.7 % (95-100); Ionized Calcium Level - ABG 1.2 mmol/L (1.1-1.4); Methemoglobin 0.7 % (0.4-1.5); Total Hemoglobin 14.4 g/dL (12-16)
== END 2021-11-19 12:37 | disposition home or self-care (01) ==
PROVIDERS: Emergency Provider Family Medicine; PCP Physician Assistant
DX: R07.89 Other chest pain (principal); J44.9 Chronic obstructive pulmonary disease, unspecified; R07.81 Pleurodynia; I10 Essential (primary) hypertension; E78.5 Hyperlipidemia, unspecified; Z87.891 Personal history of nicotine dependence
CPT/HCPCS: 36600; 71045; 80051; 80053; 82330; 82805; 84484; 85025; 93005; 99285

== ENCOUNTER 2021-11-29 06:54 | Outpatient (CLI) | payer MEDICARE, MEDICAID, SELFPAY ==
--- NOTE | 2021-11-29 07:51 | PFTS_ITS ---
Date of Study:11/29/21 Date of Dictation: MECHANICS: Forced vital capacity (FVC) is . Forced expiratory volume in one second (FEV1) is . FEV1/FVC is . FLOW VOLUME LOOP: . LUNG VOLUMES: Total lung capacity (TLC) is . Residual volume (RV) is . DIFFUSING CAPACITY FOR CARBON MONOXIDE: . INTERPRETATION: The pulmonary function tests are . mechanics and lung volumes. Gas exchange (DLCO) is . MTDD
--- NOTE | 2021-11-29 14:25 | PFTS_ITS ---
Date of Study:11/29/21 Date of Dictation: MECHANICS: Forced vital capacity (FVC) is reduced. Forced expiratory volume in one second (FEV1) is reduced. FEV1/FVC is reduced. FLOW VOLUME LOOP: Reduced flow at all lung volumes with scooping. LUNG VOLUMES: Total lung capacity (TLC) is normal. Residual volume (RV) is increased. DIFFUSING CAPACITY FOR CARBON MONOXIDE: Severely reduced. INTERPRETATION: The postbronchodilator spirometry is consistent with severe airflow obstruction. There is no significant postbronchodilator response. Lung volumes are consistent with air trapping. Gas exchange (DLCO) is severely reduced. MTDD
== END 2021-11-29 06:55 | disposition home or self-care (01) ==
LOC: RT 06:55
PROVIDERS: PCP Physician Assistant; Visit Provider Internal Medicine Critical Care Medicine
DX: J44.9 Chronic obstructive pulmonary disease, unspecified (principal); J96.11 Chronic respiratory failure with hypoxia; R91.1 Solitary pulmonary nodule; Z99.81 Dependence on supplemental oxygen
CPT/HCPCS: 94060; 94618; 94726; 94729; 99214; J7611

== ENCOUNTER → 2022-02-14 08:04 | Outpatient (BNVA) | payer MEDICARE, MEDICAID, SELFPAY | PROVIDERS: PCP Physician Assistant; Visit Provider Internal Medicine Pulmonary Disease | DX: J44.9 Chronic obstructive pulmonary disease, unspecified (principal); J96.11 Chronic respiratory failure with hypoxia; R91.1 Solitary pulmonary nodule; Z87.891 Personal history of nicotine dependence | CPT/HCPCS: 99214 ==

== ENCOUNTER 2022-08-07 13:41 | Outpatient (CLI) | payer MEDICARE, MEDICAID, SELFPAY ==
--- NOTE | 2022-08-07 13:57 | XR_ITS ---
WS: [id number] SCREENING DEXA SCAN [employer] CLINICAL INFORMATION: POSTMENOPAUSAL COMPARISON: 2019 FINDINGS: The L1-L4 bone mineral density measures 1.01. This corresponds to a T score score of -1.6 and Z score of 0.2. Left femoral neck bone mineral density measures 0.736 g/cm2. This corresponds to a T score of -2.2 an d Z score of -0.7. Right femoral neck bone mineral density measures 0.791 g/cm2. This corresponds to a T score -1.7of an d Z score of -0.3. Mean femoral neck bone mineral density measures 0.764 g/cm2. This corresponds to a T score of -1.9 an d Z score of -0.5. XR/XR DEXA axial skeleton* 72761 IMPRESSION: Osteopenia lumbar spine. Osteopenia femoral necks. Patient's FRAX calculated 10 year probability for major osteoporotic fracture i s 28.0 % and osteoporotic hip fracture is 6.2%. Bone mineral density lumbar spine increased 2.9% since 2019 Bone mineral density femoral necks decreased -1.3% since 2019
== END 2022-08-07 13:42 | disposition home or self-care (01) ==
PROVIDERS: PCP Physician Assistant; Visit Provider Physician Assistant
DX: Z78.0 Asymptomatic menopausal state (principal); M85.88 Other specified disorders of bone density and structure, other site
CPT/HCPCS: 77080

== ENCOUNTER → 2022-08-15 13:53 | Outpatient (BNVA) | payer MEDICARE, MEDICAID, SELFPAY | PROVIDERS: PCP Physician Assistant; Visit Provider Internal Medicine Pulmonary Disease | DX: J44.9 Chronic obstructive pulmonary disease, unspecified (principal); J96.11 Chronic respiratory failure with hypoxia; R91.8 Other nonspecific abnormal finding of lung field; Z87.891 Personal history of nicotine dependence; Z99.81 Dependence on supplemental oxygen | CPT/HCPCS: 99214 ==

== ENCOUNTER 2022-08-18 06:00 | Outpatient (RCR) | payer MEDICARE, MEDICAID, SELFPAY | END 2022-09-17 23:59 | disposition home or self-care (01) | LOC: PULRHB 06:00 | PROVIDERS: PCP Physician Assistant; Visit Provider Internal Medicine Pulmonary Disease | DX: J44.9 Chronic obstructive pulmonary disease, unspecified (principal); J84.9 Interstitial pulmonary disease, unspecified | CPT/HCPCS: 94625 ==

== ENCOUNTER 2022-09-18 06:00 | Outpatient (RCR) | payer MEDICARE, MEDICAID, SELFPAY | END 2022-10-18 23:59 | disposition home or self-care (01) | LOC: PULRHB 06:00 | PROVIDERS: PCP Physician Assistant; Visit Provider Internal Medicine Pulmonary Disease | DX: J43.8 Other emphysema (principal); J84.9 Interstitial pulmonary disease, unspecified | CPT/HCPCS: 94625 ==

== ENCOUNTER 2022-10-19 06:00 | Outpatient (RCR) | payer MEDICARE, MEDICAID, SELFPAY | END 2022-11-17 23:59 | disposition home or self-care (01) | LOC: PULRHB 06:00 | PROVIDERS: PCP Physician Assistant; Visit Provider Internal Medicine Pulmonary Disease | DX: J44.9 Chronic obstructive pulmonary disease, unspecified (principal); J84.9 Interstitial pulmonary disease, unspecified; J43.8 Other emphysema | CPT/HCPCS: 94625 ==

== ENCOUNTER 2022-11-18 06:00 | Outpatient (RCR) | payer MEDICARE, MEDICAID, SELFPAY | END 2022-12-18 23:59 | disposition home or self-care (01) | LOC: PULRHB 06:00 | PROVIDERS: PCP Physician Assistant; Visit Provider Internal Medicine Pulmonary Disease | DX: J43.8 Other emphysema (principal); J84.9 Interstitial pulmonary disease, unspecified | CPT/HCPCS: 94625 ==

== ENCOUNTER 2023-02-01 12:05 | Emergency (ER) | payer MEDICARE, MEDICAID, SELFPAY ==
[2023-02-01 12:18] VITALS: PULSE 146; RESP 17; TEMP 37; O2SAT 93; BMI 23.5
--- NOTE | 2023-02-01 12:20 | ECG_ITS ---
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 Measurements Intervals [place] Rate: 124 P: 0 RI: 0 QRS: 115 QRSD: 104 T: 71 QT: 323 QTc: 465 Interpretive Statements Sinus tachycardia with first-degree AV block POSSIBLE RIGHT VENTRICULAR HYPERTROPHY [SOME/ALL OF: PROMINENT R IN V1, LATE TRANSITION, RAD, SAHRA, SSS] Compared to ECG 11/19/2021 10:39:33 Atrial abnormality now present Sinus rhythm no longer present Electronically Signed On 02-02-2023 18:32:51 [facility] [employer] [facility] by Etelvina Mcneal M.D. [id number]
[2023-02-01 12:24] VITALS: BP 135/86; O2SAT 92
--- NOTE | 2023-02-01 12:31 | XR_ITS ---
WS: [id number] Exam: XR chest 1V portable [id number] Date/Time of Exam: 02/01/2023 12:31 PM Reason For Exam: tachycardia Comparison 11/19/2021. The lungs are clear and fully expanded. Heart size is normal. The mediastinum is normal in contour. N o pleural effusions. Mild chronic eventration of the LEFT diaphragm. Postoperative changes at the LEF T hilar region. Bony structures are intact. IMPRESSION: 1. No acute cardiopulmonary finding. No change.
--- NOTE | 2023-02-01 12:36 | ED_ITS ---
HPI - Arrhythmia/Palpitations 2 General: Chief Complaint: Arrhythmia/Palpitations Stated Complaint: Dr.lynn Lilly sent from [facility] Time Seen by Provider: 02/01/23 12:22 History of Present Illness: Patient presents here after being sent from [facility] pulmonary rehab. Patient was found to have a high heart rate and when he did an EKG which showed she was in SVT. Patient has no complaints at all at this time. Patient said her heart rate is normally in the 90s when she starts pulmonary rehab now she is in a phase of pulmonary rehab where she is independent and does not check her heart rate while doing it. Patient does not have any chest pain nor does she feel like her heart is racing at this moment. No shortness of breath etc. Review of Systems 2 General: Reports: 10 or more systems reviewed and unremarkable except in HPI and below PFSH ED 2 PFSH: Medical History (Updated 02/01/23 @ 15:13 by Oc Anderson DO) HTN (hypertension) Hyperlipidemia B12 deficiency COPD (chronic obstructive pulmonary disease) Surgical History H/O tubal ligation Family History Father Cancer Social History Smoking and tobacco/nicotine status: former use of tobacco/nicotine Quit status (tobacco/nicotine): has quit using Year quit tobacco: 2006 - 2PPD x 30 Years Alcohol intake: current Alcohol intake frequency: holidays/special occasions only Alcohol type: beer Substance/Drug Use: never Lives independently: Yes Household members: spouse Marital status: Current occupational status: retired Do you think of yourself as: Straight/Heterosexual Current gender identity: Female Physical Exam 2 Const: COMMON NORMALS: no acute distress, average body habitus, patient oriented x3, no limitations, healthy appearing, alert and well nourished HENMT: COMMON NORMALS: normocephalic, atraumatic, hearing grossly normal bilaterally, external ears normal, Normal external nose present, moist oral mucous membranes and oropharynx normal HEAD & SCALP: normocephalic and atraumatic NOSE: Normal external nose present EXTERNAL EAR: Yes external ears normal Neck/C-Spine: COMMON NORMALS: no JVD Chest: COMMONS NORMALS: normal inspection of the chest and normal palpation of entire chest wall Resp: COMMON NORMALS: normal respiratory effort, No retractions, No use of accessory muscles and clear to auscultation bilaterally AUSCULTATION: clear to auscultation bilaterally Cardio: COMMON NORMALS: no JVD, regular rate, regular rhythm, S1 normal heart sound present, S2 normal heart sound present, No gallops present (Cardio), No clicks present (Cardio), No murmurs present (Cardio) and No rub (Cardio) R ATE: regular rate RHYTHM: regular rhythm HEART SOUNDS: S1 normal heart sound present and S2 normal heart sound present GI: COMMON NORMALS: Normal to inspection, nondistended, normoactive bowel sounds present, Soft to palpation, non-tender, No hepatosplenomegaly present and no masses PALPATION: Yes Soft to palpation and Yes No hepatosplenomegaly present : COMMON NORMALS: Yes no CVA tenderness BLADDER/KIDNEY EXAM: Yes no CVA tenderness Back/Pelvis: COMMON NORMALS: no CVA tenderness Neuro: COMMON NORMALS: patient oriented x3 SENSORIUM/ORIENTATION: Yes alert Course 2 Vital Signs: Vital signs: Vital Signs Temperature 98.6 F 02/01/23 12:18 Pulse Rate 101 H 02/01/23 14:07 Respiratory Rate 16 02/01/23 14:07 Blood Pressure 143/95 02/01/23 14:07 Pulse Oximetry 93 02/01/23 14:07 Oxygen Delivery Me thod Room Air 02/01/23 13:20 MDM - Arrhythmia/Palpitations Medical Decision Making Patient presented to the ER from pulmonary rehab secondary to possible SVT. EKGs and serial troponins and labs were obtained. All of which was essentially benign patient's heart rate decreased down to approximately 99 bpm. Patient's potassium was found to be mildly low at 3.1 and she was given 40 mEq potassium orally and will be discharged on 20 mEq a day and is to instructed to follow-up with her PCP in 7 days for further evaluation testing. Differential Diagnosis Likely supraventricular tachycardia; Unlikely palpitations, anxiety, sinus tachycardia, artial fibrillation, artial flutter, ventricular premature beats, ventricular tachycardia or WPW Medical Records I reviewed the patient's medical records. Lab Data I reviewed the patient's lab results. 02/01/23 12:36 02/01/23 12:36 Laboratory Results WBC 14.04 10^3/uL (3.29-11.43) H 02/01/23 12:36 RBC 4.86 10^6/uL (3.85-5.65) 02/01/23 12:36 Hgb 14.50 g/dL (11.27-16.99) 02/01/23 12:36 Hct 41.8 % (36-47) 02/01/23 12:36 MCV 86.0 fl (85-98) 02/01/23 12:36 MCH 29.8 pg (27-33) 02/01/23 12:36 MCHC 34.7 g/dL (30-55) 02/01/23 12:36 RDW 13.7 % (12.1-15.1) 02/01/23 12:36 Plt Count 255 10^3/cmm (157-399) 02/01/23 12:36 MPV 9.3 fL (7.4-10.4) 02/01/23 12:36 Neut % (Auto) 79.6 % 02/01/23 12:36 Lymph % (Auto) 7.5 % 02/01/23 12:36 [place] % (Auto) 9.5 % 02/01/23 12:36 Eos % (Auto) 2.6 % 02/01/23 12:36 Baso % (Auto) 0.4 % 02/01/23 12:36 Neut # (Auto) 11.16 10^3/uL (1.8-7.7) H 02/01/23 12:36 Lymph # (Auto) 1.1 10^3/uL (0.8-4.8) 02/01/23 12:36 [place] # (Auto) 1.3 10^3/uL (0.2-0.9) H 02/01/23 12:36 Eos # (Auto) 0.4 10^3/uL (0.0-0.8) 02/01/23 12:36 Baso # (Auto) 0.1 10^3/uL (0.0-0.1) 02/01/23 12:36 Nucleated RBC % (auto) 0 % 02/01/23 12:36 Nucleated RBCs # 0.0 /100WBC 02/01/23 12:36 Sodium 138 mmol/L (136-145) 02/01/23 12:36 Potassium 3.1 mmol/L (3.5-5.1) L 02/01/23 12:36 Chloride 96 mmol/L (98-107) L 02/01/23 12:36 Carbon Dioxide 26 mmol/L (22-29) 02/01/23 12:36 Anion Gap 19.1 (5-19) H 02/01/23 12:36 BUN 15 mg/dL (8-23) 02/01/23 12:36 Creatinine 0.8 mg/dL (0.5-0.9) 02/01/23 12:36 GFR Calculation 71.1 mL/min (90-130) L 02/01/23 12:36 Glucose 136 mg/dL (65-115) H 02/01/23 12:36 Calculated Osmolality 289 mOsm/kg (285-295) 02/01/23 12:36 Calcium 9.8 mg/dL (8.5-10.5) 02/01/23 12:36 Magnesium 2.0 mg/dL (1.7-2.3) 02/01/23 12:36 Total Bilirubin 0.5 mg/dL (0.15-1.2) 02/01/23 12:36 AST 17 U/L (0-32) 02/01/23 12:36 ALT 29 U/L (0-33) 02/01/23 12:36 Alkaline Phosphatase 110 U/L (35-105) H 02/01/23 12:36 Troponin T Baseline 18 ng/L (0-10) H 02/01/23 12:36 Troponin T 120 Minute 23.96 ng/L (0-10) H 02/01/23 14:37 Delta Troponin T 5.96 ABS# (0-10) 02/01/23 14:37 Total Protein 7.7 g/dL (6.6-8.7) 02/01/23 12:36 Albumin 4.7 g/dL (3.5-5.2) 02/01/23 12:36 Globulin 3.0 g/dL (1.3-4.6) 02/01/23 12:36 TSH 1.27 uIU/mL (0.27-4.20) 12/15/23 12:36 All radiology interpretation(s) finalized by discharge EKG Data EKG 1: I personally reviewed and interpreted this EKG as follows: EKG interpretation date: 02/01/23 EKG interpretation time: 12:20 Prior EKG tracings: not available for review Interpretation: EKG shows ventricular rate 124 beats minute, QRS duration 104, QTc of 397, sinus tachycardia, possible right ventricular hypertrophy, Computer generated interpretation: Computer-generated response to says atrial flutter/tachycardia with RVR which I disagree with EKG 2: I personally reviewed and interpreted this EKG as follows: EKG interpretation date: 02/01/23 EKG interpretation time: 14:33 Prior EKG tracings: available for review Interpretation: EKG showed ventricular rate 101 bpm, IN interval 192, QRS duration 88, QTc of 408, sinus tachycardia with occasional PVC, possible right ventricular hypertrophy, Discharge Plan Discharge Patient Disposition: Home Clinical Impression: Tachycardia, Acute hypokalemia Condition: Stable Prescriptions: No Action losartan [Cozaar] 50 mg tablet 50 mg PO DAILY cholecalciferol (vitamin D3) 25 mcg (1,000 unit) capsule 25 mcg PO DAILY mecobalamin (vitamin B12) 1,000 mcg tablet,chewable 1,000 mcg PO DAILY pravastatin 10 mg tablet 10 mg PO DAILY albuterol sulfate 2.5 mg /3 mL (0.083 %) solution for nebulization 2.5 mg INHALATION Q4H PRN (Reason: Shortness Of Breath) ipratropium-albuterol 0.5 mg-3 mg(2.5 mg base)/3 mL solution for nebulization 3 ml INHALATION Q6H PRN (Reason: Shortness Of Breath) fexofenadine [Allergy Relief (fexofenadine)] 180 mg tablet 180 mg PO DAILY amlodipine [Norvasc] 5 mg tablet 5 mg PO DAILY chlorthalidone 25 mg tablet 25 mg PO DAILY fluticasone propionate [Flonase Allergy Relief] 50 mcg/actuation spray,suspension 2 spray intranasal DAILY Rx Instructions: administer into each nostril Breztri Aerosphere 160-9-4.8 mcg/actuation HFA aerosol inhaler 2 inh inhalation BID Qty: 10.7 5RF albuterol sulfate 90 mcg/actuation HFA aerosol inhaler 2 puff INHALATION Q4H PRN (Reason: Shortness Of Breath) Discharge Orders: Discharge ED (Routine); Ordered 02/01/23 Ordered By: Oc Anderson Referrals: Jennifer Nevarez PA [Primary Care Provider] - 1 week Patient Instructions: Tachycardia (ED), Hypokalemia (ED) Activity Restrictions/Additional Instructions: Please take all your medicines as directed. Please follow-up with your family practice physician in approximately 7 days to have your potassium rechecked for further evaluation and treatment. Coding Level of Care Code ED Hospital Television Rental Clerk for Radha Ramos
[2023-02-01 12:45] LABS: Basophils # 0.1 10^3/uL (0.0-0.1); Basophils % 0.4 %; Eosinophils # 0.4 10^3/uL (0.0-0.8); Eosinophils % 2.6 %; Hematocrit 41.8 % (36-47); Lymphocytes # 1.1 10^3/uL (0.8-4.8); Lymphocytes % 7.5 %; Mean Corpuscular HGB Conc 34.7 g/dL (30-55); Mean Corpuscular Hemoglobin 29.8 pg (27-33); Mean Platelet Volume 9.3 fL (7.4-10.4); Monocytes # 1.3 10^3/uL (0.2-0.9); Monocytes % 9.5 %; Neutrophils # 11.16 10^3/uL (1.8-7.7); Neutrophils % 79.6 %; Nucleated Red Blood Cells % 0 %; Platelet Count 255 10^3/cmm (157-399); Red Blood Count 4.86 10^6/uL (3.85-5.65); Red Cell Distribution Width 13.7 % (12.1-15.1); White Blood Count 14.04 10^3/uL (3.29-11.43)
[2023-02-01 13:04] LABS: Troponin(5th) Baseline 18 ng/L (0-10)
[2023-02-01 13:20] VITALS: BP 127/76; PULSE 100; RESP 15; O2SAT 91
[2023-02-01 13:37] LABS: Alanine Aminotransferase 29 U/L (0-33); Albumin Level 4.7 g/dL (3.5-5.2); Alkaline Phosphatase 110 U/L (35-105); Anion Gap 19.1 (5-19); Aspartate Amino Transferase 17 U/L (0-32); Blood Urea Nitrogen 15 mg/dL (8-23); Calcium 9.8 mg/dL (8.5-10.5); Carbon Dioxide 26 mmol/L (22-29); Chloride 96 mmol/L (98-107); Glomerular Filtration Rate 71.1 mL/min (90-130); Glucose 136 mg/dL (65-115); Osmolality Calculated 289 mOsm/kg (285-295); Potassium 3.1 mmol/L (3.5-5.1); Sodium 138 mmol/L (136-145); Thyroid Stimulating Hormone 1.27 uIU/mL (0.27-4.20); Total Bilirubin 0.5 mg/dL (0.15-1.2); Total Protein 7.7 g/dL (6.6-8.7)
[2023-02-01 14:07] VITALS: BP 143/95; PULSE 101; RESP 16; O2SAT 93
--- NOTE | 2023-02-01 14:33 | ECG_ITS ---
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 Measurements Intervals [place] Rate: 101 P: 88 MS: 192 QRS: 111 QRSD: 88 T: 76 QT: 350 QTc: 455 Interpretive Statements SINUS TACHYCARDIA WITH OCCASIONAL VENTRICULAR PREMATURE COMPLEXES POSSIBLE RIGHT VENTRICULAR HYPERTROPHY [SOME/ALL OF: PROMINENT R IN V1, LATE TRANSITION, RAD, SAHRA, SSS] MODERATE ST DEPRESSION [0.05+ mV ST DEPRESSION] Compared to ECG 02/01/2023 12:20:56 Ventricular premature complex(es) now present ST (T wave) deviation now present Atrial flutter no longer present Electronically Signed On 02-02-2023 18:47:04 COMPLIANCE ANALYST by Etelvina Mcneal M.D. [id number]
[2023-02-01 15:05] LABS: Troponin 5 2HR 23.96 ng/L (0-10); Troponin 5 2HR Delta 5.96 ABS# (0-10)
[2023-02-01 15:11] VITALS: BP 167/82; PULSE 101; RESP 15; O2SAT 91
[2023-02-01 15:31] VITALS: BP 162/78; PULSE 94; RESP 16; O2SAT 92
[2023-02-01] MEDS: potassium chloride ER 20 mEq Tablet 40 MEQ PO (15:35)
== END 2023-02-01 15:40 | disposition home or self-care (01) ==
PROVIDERS: Emergency Provider Emergency Medicine; PCP Physician Assistant
DX: R00.0 Tachycardia, unspecified (principal); E87.6 Hypokalemia; I10 Essential (primary) hypertension; E78.5 Hyperlipidemia, unspecified; J44.9 Chronic obstructive pulmonary disease, unspecified; Z87.891 Personal history of nicotine dependence
CPT/HCPCS: 36415; 71045; 80053; 83735; 84443; 84484; 85025; 93005; 99285

== ENCOUNTER → 2023-06-17 07:56 | Outpatient (BNVA) | payer MEDICARE, SELFPAY | PROVIDERS: PCP Physician Assistant; Visit Provider Internal Medicine Pulmonary Disease | DX: J22 Unspecified acute lower respiratory infection (principal); Z87.891 Personal history of nicotine dependence; J44.9 Chronic obstructive pulmonary disease, unspecified; J96.11 Chronic respiratory failure with hypoxia; R91.1 Solitary pulmonary nodule; T78.40XA Allergy, unspecified, initial encounter; X58.XXXA Exposure to other specified factors, initial encounter | CPT/HCPCS: 71046; 99214 ==

== ENCOUNTER 2023-08-12 09:37 | Outpatient (CLI) | payer MEDICARE, SELFPAY ==
--- NOTE | 2023-08-12 09:41 | CT_ITS ---
WS: [id number] LDCT LUNG CANCER SCREENING TECHNIQUE: Noncontrast CT of the chest with coronal and sagittal reformatted images. CLINICAL INFORMATION: NICOTINE DEPENDENCE,CIGARETTES COMPARISON: CT chest 11/15/2021 and 05/09/2020 DLP: 55.37 mGy.cm DIvol: Mean CTDIvol: 1.00 (mGy) All CT scans at [facility] use at least one of these dose optimization techniques: automat ed exposure control; mA and/or kV adjustment per patient size (includes targeted exams where dose is matched to clinical indication); or iterative reconstruction. FINDINGS: 7 mm pulmonary nodule RIGHT lower lobe has progressed compared to 202. Previously measured 5 mm. Pleural nodule LEFT lower lobe measuring 9 mm appears new from previous Normal caliber thoracic aorta. Aortic calcification. Coronary calcification. Calcified mediastinal ly mph nodes. Tiny esophageal hiatal hernia. Splenic granulomas. Splenic artery calcifications. Normal LEFT adrenal gland. Small RIGHT adrenal adam noma. No axillary lymphadenopathy. Moderate thoracic kyphosis. Chronic anterior wedging in the midthoracic spine. Schmorl's nodes in the mid and lower thoracic spine. Subsegmental atelectasis LEFT upper lobe with collapse of the LEFT upp er lobe has progressed since the prior chest CT. A few small stable subcentimeter nodules within the RIGHT lower lobe, LEFT upper lobe peripherally, a nd RIGHT lower lobe. Calcified granulomas. Chronic emphysematous change. CT/CT lung screening [id number] IMPRESSION: 1. LEFT upper lobe collapse progressed compared to previous. Recommend correl ation with prior surgical history 2. 7 mm RIGHT lower lobe pulmonary nodule has progressed previously measuring 5 mm in 2021. Recommend 3-month follow-up. 3. Pleural nodule LEFT lower lobe measuring 9 mm appears new from previous LUNG-RADS: 4A-Probably Suspicious FOLLOW UP: 3 Month LDCT
== END 2023-08-12 09:38 | disposition home or self-care (01) ==
PROVIDERS: PCP Physician Assistant; Visit Provider Physician Assistant
DX: Z12.2 Encounter for screening for malignant neoplasm of respiratory organs (principal); F17.210 Nicotine dependence, cigarettes, uncomplicated; R91.8 Other nonspecific abnormal finding of lung field; D73.89 Other diseases of spleen; D35.01 Benign neoplasm of right adrenal gland; M40.204 Unspecified kyphosis, thoracic region; M48.54XA Collapsed vertebra, not elsewhere classified, thoracic region, initial encounter for fracture; M51.44 Schmorl's nodes, thoracic region; J98.11 Atelectasis; J98.19 Other pulmonary collapse; J84.10 Pulmonary fibrosis, unspecified; J43.8 Other emphysema
CPT/HCPCS: 71271

== ENCOUNTER 2023-08-14 07:45 | Outpatient (CLI) | payer MEDICARE, SELFPAY ==
--- NOTE | 2023-08-14 07:51 | MM_ITS ---
WS: [id number] SCREENING DIGITAL BREAST TOMOSYNTHESIS MAMMOGRAM WITH CAD HISTORY: SCREENING COMPARISON: 08/25/2021, 03/18/2020 Bilateral CC and MLO with tomosynthesis and synthetic mammography submitted. Computer aided detection analyzed. Breast composition: There are scattered areas of fibroglandular density. Focal asymmetry in the super ior RIGHT breast seen only on the MLO projection. This needs to be further evaluated. Otherwise benig n calcifications. No mass. MM/[place] [id number] IMPRESSION: BI-RADS: 0-Incomplete: Need additional imaging evaluation FOLLOW UP: Need Additional Imaging RIGHT breast: Spot compression views (exaggerated medial CC and MLO). True ML. Ultrasound to follow if abnormality persists.
== END 2023-08-14 07:46 | disposition home or self-care (01) ==
PROVIDERS: PCP Physician Assistant; Visit Provider Physician Assistant
DX: Z12.39 Encounter for other screening for malignant neoplasm of breast (principal)
CPT/HCPCS: 77063; 77067

== ENCOUNTER 2023-10-07 08:51 | Outpatient (CLI) | payer MEDICARE, SELFPAY ==
--- NOTE | 2023-10-07 08:55 | MM_ITS ---
WS: [id number] RIGHT 3D TOMOSYNTHESIS DIGITAL MAMMOGRAPHY WITH CAD CLINICAL INFORMATION: ABNORMAL MAMMOGRAM HISTORY: Additional views COMPARISON: 08/14/2023 TECHNIQUE: 3 views of the right breast were obtained. FINDINGS: Scattered fibroglandular densities of the right breast. Again seen is the area of architectural disto rtion in the superior quadrant RIGHT breast near the 12 o'clock position. This partially compresses o ut on the spot compression views with decreased parenchymal density but residual architectural distor tion. Ultrasound is pending. ULTRASOUND BREAST RIGHT TECHNIQUE: Ultrasound right breast focused area of concern. CLINICAL INFORMATION: ABNORMAL MAMMOGRAM FINDINGS: Ultrasound superior quadrant RIGHT breast 10:00 to 2 o'clock position. Normal underlying parenchymal tissue. No cystic or solid lesions. No suspicious lesions to target for biopsy. Recommend return to a nnual screening mammography. MM/[place] [id number] IMPRESSION: BI-RADS: 2-Benign FOLLOW UP: 1 Year Follow-up Recommend return to annual screening mammography.
== END 2023-10-07 08:52 | disposition home or self-care (01) ==
PROVIDERS: PCP Physician Assistant; Visit Provider Physician Assistant
DX: Z12.31 Encounter for screening mammogram for malignant neoplasm of breast (principal); R92.8 Other abnormal and inconclusive findings on diagnostic imaging of breast; R92.321 Mammographic fibroglandular density, right breast
CPT/HCPCS: 76642; 77061; G0279

== ENCOUNTER 2023-10-28 10:31 | Outpatient (CLI) | payer MEDICARE, MEDICAID, SELFPAY ==
--- NOTE | 2023-10-28 10:32 | CT_ITS ---
WS: [id number] LDCT LUNG CANCER SCREENING HISTORY: Cancer Screen TECHNIQUE: Axial imaging performed from the apices to 1 cm below the costophrenic angles. Coronal and sagittal reformats are submitted with axial MIP series. All CT scans at [facility] use at least one of these dose optimization techniques: automated exposure control; mA and/or kV adjustment per patient size (includes targeted exams where dose is matched to clinical indication); or iterativ e reconstruction. DLP: 52.40 mGy.cm DIvol: Mean CTDIvol: 0.90 (mGy) COMPARISON: 08/07/2019, 10/28/2023 and 08/12/2023 Diagnostic quality: Satisfactory Lungs: Marked hyperexpanded lungs. Previously described RIGHT lower lobe nodule reidentified measurin g 7 mm. No progression since the most recent studies. Very slight increase in size by 2 mm since 08/06. No subsegmental atelectasis LEFT lung base. 5 mm nodule RIGHT lung base, image 253 of series 4 . Mild nodularity and pleural thickening RIGHT major fissure. Near complete atelectasis LEFT upper lo be. Progressive atelectasis LEFT upper lobe. History of bronchoscopic lung volume reduction. Heart: Normal size heart with no pericardial effusion.. Other findings: Small hiatal hernia. No adenopathy. Mild atherosclerosis aorta. Mild anterior wedging midthoracic vertebral bodies. CT/CT lung screening [id number] IMPRESSION: LUNG-RADS: 2-Benign Appearance or Behavior FOLLOW UP: 12 Month: Continue annual screening with LDCT OTHER FINDINGS (S MODIFIER): None. Pulmonary nodules which have been previously described are unchanged. There are no new or enlarging nodules. Progressive volume loss LEFT upper lobe. Patient is status post bronchoscopic l john volume reduction procedure.
--- NOTE | 2023-10-28 12:05 | CT_ITS ---
WS: [id number] CT chest w con* [id number] HISTORY: MULTIPLE LUNG NODULES TECHNIQUE: Axial imaging performed through the thorax. Coronal and sagittal reformats are submitted. All CT scans at [facility] use at least one of these dose optimization techniques: automated exposure control; mA and/or kV adjustment per patient size (includes targeted exams where dose is mat ched to clinical indication); or iterative reconstruction. CONTRAST: Omnipaque 350; 100 mL IV. DLP: 284.42 mGy.cm COMPARISON: 11/07/2021, 08/12/2023 Lungs and central airway: Chronic emphysema. Hyperexpanded lungs. LEFT upper lobe atelectasis. Patien t is status post bronchoscopic volume reduction LEFT upper lobe. RIGHT lower lobe 7 mm nodule unchang ed. Subsegmental atelectasis LEFT lung base. 5 mm nodule RIGHT lung base. Pleura: Normal. No pleural effusion. Heart and pericardium: Normal size heart with no pericardial effusion. Mediastinum and hossein: No mediastinum or hilar adenopathy. Vessels: Atherosclerosis aorta. Normal size pulmonary artery. No adenopathy. Chest wall and lower neck: No soft tissue masses. Upper abdomen: Splenic granulomata. RIGHT adrenal mass 1.4 x 2.5 cm. Additional 1.1 cm LEFT adrenal m ass. Osseous structures: No destructive process. Osteopenia with mild anterior wedging of several midthora cic vertebral bodies. CT/CT chest w con* [id number] IMPRESSION: 1. Chronic emphysema with no change in the pulmonary nodules since at least . 2. No mediastinal or hilar adenopathy. 3. Progressive LEFT upper lobe collapse due to bronchoscopic volume reduction. 4. Bilateral adrenal masses. On a prior noncontrast study the larger RIGHT adr enal mass was consistent with an adenoma. The smaller LEFT adrenal mass is also been present on prior studies but is too small to characterize.
[2023-10-28 12:33] LABS: Blood Urea Nitrogen 13 mg/dL (8-23); Creatinine Clr Calc Pharmacy 60.8106; Glomerular Filtration Rate 71.1 mL/min (90-130)
[2023-10-28] MEDS: iohexol 350 mg/mL 500 mL Btl (per mL) IV (13:10)
== END 2023-10-28 10:32 | disposition home or self-care (01) ==
LOC: RAD 10:31
PROVIDERS: Radiology Diagnostic Radiology; PCP Physician Assistant; Visit Provider Physician Assistant
DX: R91.8 Other nonspecific abnormal finding of lung field (principal); J43.9 Emphysema, unspecified; J98.11 Atelectasis; I70.0 Atherosclerosis of aorta; D73.89 Other diseases of spleen; D35.01 Benign neoplasm of right adrenal gland; D35.02 Benign neoplasm of left adrenal gland; M85.80 Other specified disorders of bone density and structure, unspecified site; Z87.891 Personal history of nicotine dependence
CPT/HCPCS: 71260; 71271; 82565; 84520